=== PATIENT | female | born 1960 | race Caucasian/White ===

== ENCOUNTER 2019-10-14 10:41 | Outpatient (CLI) | payer BC, SELFPAY ==
--- NOTE | ~2019-10-14 | MM_ITS ---
EXAMINATION: MM screening [facility] BI w mega HISTORY: Screening mammogram TECHNIQUE: Craniocaudal and mediolateral oblique 3-D tomosynthesis images were obtained and synthetic 2-D images were generated. CAD analysis was submitted and interpreted. COMPARISON: Comparison to multiple prior studies sequentially, with oldest reviewed study dated 09/12. BREAST PARENCHYMAL COMPOSITION: There are scattered areas of fibroglandular density. FINDINGS: There is no evidence of suspicious mass, calcification, or architectural distortion to sugg est malignancy in either breast. There has been no suspicious interval change. IMPRESSION: 1. No mammographic evidence of malignancy. 2. Recommend routine screening mammography in one year. BI-RADS Category 1: Negative Reviewed, dictated and finalized at location A.
== END 2019-10-14 10:42 | disposition home or self-care (01) ==
PROVIDERS: PCP Internal Medicine; Visit Provider Internal Medicine
DX: Z12.31 Encounter for screening mammogram for malignant neoplasm of breast (principal)
CPT/HCPCS: 77063; 77067

== ENCOUNTER 2019-12-09 10:59 | Emergency (ER) | payer BC, SELFPAY ==
--- NOTE | ~2019-12-09 | CT_ITS ---
EXAMINATION: CT thoracic lumbar wo con DATE: 12/09/2019 12:31 INDICATION: Low back pain. Thoracic back pain. Fall. Lower extremity weakness and numbness. TECHNIQUE: Computed tomography (CT) of the thoracic and lumbar spine was performed without intravenou s contrast. Automated exposure control and iterative reconstruction technique were employed. The dose -length product was 2131.96 mGy-cm. COMPARISON: None FINDINGS: CT THORACIC SPINE: There is a 3.3 cm nodule in left thyroid lobe. There is 6 degrees dextrocurvature of thoracic spine. There is mild chronic anterior wedging of T6 and T7 vertebral bodies. There are Sc hmorl's nodes at most levels. There is mildly decreased disc height from T2-T3 through T8-T9. At T8-T 9, the disc is bulging and mild central canal stenosis. At T10-T11, there is a large calcified centra l extrusion with severe central canal stenosis. There is multilevel facet joint osteoarthritis, sever e on the right at T4-T5. There is multilevel mild neural foraminal stenosis bilaterally. There is mod erate neural foraminal stenosis on the left at T10-T11. CT LUMBAR SPINE: There is 4 degrees levocurvature of lumbar spine. There is 3 mm anterolisthesis of L 4 on L5. There are changes of anterior and posterior fusion procedures at L1-L2 with interbody device and pedicle screws. Vertebral body heights are normal. There is moderately decreased disc height at L2-L3, L3-L4, and L5-S1 and mildly decreased disc height at L4-L5. The following disc levels are spec ifically discussed: L1-L2: There is mild right facet joint hypertrophy. There is mild bilateral neural foraminal stenosis . There is no central canal stenosis. L2-L3: The disc is bulging. There is mild bilateral facet joint osteoarthritis. There is moderate eloisa ateral neural foraminal stenosis. There is moderate central canal stenosis. L3-L4: The disc is bulging. There is mild bilateral facet joint osteoarthritis. There is moderate and mild left neural foraminal stenosis. There is moderate central canal stenosis. L4-L5: The disc is bulging. There is severe bilateral facet joint osteoarthritis. There is moderate b ilateral neural foraminal stenosis. There is mild central canal stenosis. L5-S1: The disc is bulging. There is moderate right and severe left facet joint osteoarthritis. There is moderate right and mild left neural foraminal stenosis. There is mild central canal stenosis. IMPRESSION: 1. Severe thoracic and lumbar spondylosis. 2. Anterior and posterior fusion procedures at L1-L2. Reviewed, dictated and finalized at location B.
--- NOTE | ~2019-12-09 | XR_ITS ---
EXAMINATION: XR ankle LT min 3V DATE: 12/09/2019 12:30 INDICATION: Left ankle pain. Fall. TECHNIQUE: 3 views of left ankle were obtained. COMPARISON: None. FINDINGS: Bone alignment is normal. There is a fragment of heterotopic ossification distal to medial malleolus. There is mild midfoot osteoarthritis. There are enthesophytes at the posterior and plantar aspects of calcaneal tuberosity. There is ankle soft tissue swelling. IMPRESSION: 1. Fragment of heterotopic ossification distal to medial malleolus, which may be an acute avulsion fr acture or finding from old injury. Reviewed, dictated and finalized at location B. IMPRESSION: 1. Fragment of heterotopic ossification distal to medial malleolus, which may b e an acute avulsion fracture or finding from old injury.
[2019-12-09 11:20] VITALS: BP 139/69; PULSE 86; RESP 12; TEMP 36.2; O2SAT 92
--- NOTE | 2019-12-09 11:43 | ED.WEAKNESS ---
HPI - Weakness General Chief complaint: Weakness Stated complaint: loss of bladder control/ fell and hurt danae Time Seen by Provider: 12/09/19 11:43 Source: patient Mode of arrival: wheelchair Limitations: no limitations History of Present Illness HPI Narrative: 59-year-old woman with a history of spinal trauma 2 years ago that resulted in some bilateral lower extremity paresis even after surgery comes in today complaining of 3 weeks of increasing weakness in her lower extremities, incontinence for the last week, had a fall last night. She states that she fell on her backside. she states that prior to 3 weeks ago she was able to ambulate independently, using her walker around the house for safety and using arm crutches when she was out of the house. At that juncture she was able to hold her grandchild and drive. 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 She denies fever, nausea, vomiting, cough or cold symptoms, abdominal pain, diarrhea. She states that she was treated with medication for dysuria a week ago and her dysuria persists. She states she has been taking Cipro for the last few days. Patient and her states that she had an MRI a week ago and she discussed it with someone in her doctor's office, Dr. Michael Peguero: [phone] Complaint: focal weakness Onset (ago): week(s) (3) Duration: constant Location: LLE and RLE Migration: none Severity: severe Relieving factors: none Exacerbating factors: none Context: trauma/injury Associated symptoms: dysuria Related Data Home Medications Medication Instructions Recorded Confirmed amitriptyline 75 mg PO DAILY 12/09/19 12/09/19 cyclobenzaprine 5 mg PO QAM 12/09/19 12/09/19 cyclobenzaprine 10 mg PO HS 12/09/19 12/09/19 escitalopram oxalate 10 mg PO DAILY 12/09/19 12/09/19 gabapentin 300 mg PO TID 12/09/19 12/09/19 glimepiride 40 mg PO BID 12/09/19 12/09/19 lisinopril 5 mg PO DAILY 12/09/19 12/09/19 lorazepam 0.5 mg PO TID PRN 12/09/19 12/09/19 lovastatin 20 mg PO DAILY 12/09/19 12/09/19 methylprednisolone See Rx Instructions .ROUTE .COMPLEX 12/09/19 pioglitazone 30 mg PO DAILY 12/09/19 12/09/19 tramadol 50 mg PO Q6-8H PRN 12/09/19 12/09/19 Allergies Allergy/AdvReac Type Severity Reaction Status Date / Time Sulfa (Sulfonamide Allergy Mild Rash Verified 12/09/19 13:44 Antibiotics) cefuroxime [From Ceftin] Allergy Diarrhea Verified 12/09/19 12:19 Review of Systems Constitutional: Constitutional: Denies chills, Denies fatigue, Denies fever(s) and Reports weakness Eyes: Eyes: Denies change in vision and Denies photophobia ENT: Denies dysphagia, Denies nasal congestion and Denies sore throat Cardiovascular: Cardiovascular: Denies chest pain and Denies radiating jaw, neck or arm pain Respiratory: Respiratory: Denies cough, Denies dyspnea and Denies wheezing Gastrointestinal: Gastrointestinal: Denies abdominal pain, Denies diarrhea, Denies nausea and Denies vomiting Genitourinary: Genitourinary: Reports dysuria and Reports urinary incontinence Musculoskeletal: Musculoskeletal: Denies back pain, Denies arthralgias and Denies joint swelling Integumentary/Breasts: Skin/Breast: Denies pruritus, Denies erythema and Denies rash Neurologic: Denies vertigo, Denies dizziness and Denies syncope Endocrine: Endocrine: Denies polydipsia and Denies polyuria Hematologic/Lymphatic: Hematologic/Lymphatic: Denies easy bleeding and Denies easy bruising Allergic/Immunologic: Allergic/Immunologic: Denies lip swelling, Denies throat swelling and Denies tongue swelling PMFSH Past Medical History Medical History Anxiety Dysthymic disorder HTN (hypertension) Hyperlipidemia Obesity Paraplegia T2DM (type 2 diabetes mellitus) Surgical History Surgical History (Reviewed 12/09/19 @ 11:54 by Philipp
[2019-12-09 12:00] LABS: Add Urine Microscopic? YES; Appearance Urine Turbid (Clear); Bilirubin Urine Negative (Negative); Blood Urine 3+ (Negative); Color Urine Orange (Yellow); Glucose Urine UA Trace (Negative); Ketones Urine Negative (Negative); Leukocyte Esterase Ur 2+ (Negative); Nitrate Urine Positive (Negative); Protein Urine 2+ (Negative); Specific Grav Ur >= 1.030 (1.010-1.020); pH Urine 5.5 (5.0-8.0)
[2019-12-09 12:05] LABS: RBC Urine None seen /hpf (0-2); Squamous Epithelial Cell Urine Few /hpf (Few); WBC Urine >75 /hpf (0-3)
[2019-12-09 12:06] LABS: Bacteria Urine 2+ /hpf
[2019-12-09 13:03] LABS: Basophils Absolute Auto 0.04 K/mm3 (0.00-0.10); Basophils Percent Auto 0.4 % (0.0-1.0); Eosinophils Absolute Auto 0.16 K/mm3 (0.02-0.50); Eosinophils Percent Auto 1.5 % (1.0-6.0); Hematocrit 43.5 % (35.0-49.0); Hemoglobin 13.8 g/dL (12.0-15.0); Immature Granulocyte Absolute 0.03 K/mm3 (0.00-0.00); Immature Granulocyte Percent A 0.3 % (0.0-0.0); Lymphocytes Absolute Auto 1.69 K/mm3 (1.10-4.50); Lymphocytes Percent Auto 16.3 % (18.0-42.0); Mean Corpuscular HGB Conc 31.7 g/dL (32.0-36.0); Mean Corpuscular Hemoglobin 29.7 pg (27.0-31.0); Mean Corpuscular Volume 93.8 fL (78.0-102.0); Monocytes Absolute Auto 0.68 K/mm3 (0.10-0.90); Monocytes Percent Auto 6.5 % (2.0-11.0); Neutrophils Absolute Auto 7.8 K/mm3 (1.7-7.2); Platelet Count Result 202 K/mm3 (150-420); Red Blood Count 4.64 M/mm3 (4.20-5.40); White Blood Count 10.4 K/mm3 (4.8-10.8)
[2019-12-09 13:16] LABS: INR 1.2; Partial Thromboplastin Time 28.8 SEC (22.3-31.6); Prothrombin Time 12.3 Seconds (9.64-11.0)
[2019-12-09 13:19] LABS: Alanine Aminotransferase 26 U/L (14-59); Albumin Level 3.4 g/dL (3.4-5.0); Alkaline Phosphatase 68 U/L (46-116); Anion Gap 6 mmol/L (8-16); Aspartate Amino Transferase 24 U/L (15-37); Bilirubin,Total 0.4 mg/dL (0.00-1.00); Blood Urea Nitrogen 18 mg/dL (7-18); CRP 2.6 mg/dL (0.0-0.9); Calcium 9.2 mg/dL (8.5-10.1); Carbon Dioxide 31 mmol/L (21-32); Chloride 101 mmol/L (98-108); Estimated CRCL calculation 65 ml/min; Estimated Glomerular Filt Rate 46; Glucose 148 mg/dL (70-99); Osmolality Calculated 290 mOsm/kg (285-295); Potassium 4.4 mmol/L (3.5-5.1); Sodium 138 mmol/L (136-145); Total Protein 7.7 g/dL (6.4-8.2)
[2019-12-09 13:28] LABS: Lactic Acid Reflex 1.9 mmol/L (0.4-2.0)
--- NOTE | 2019-12-09 14:18 | PC.NURSE ---
Pts back surgeon Dr. Rodriguez contacted. DR. rodriguez would like pt to be transfered to [facility] for MRI.
[2019-12-09 14:19] VITALS: BP 116/59; PULSE 89; RESP 14; O2SAT 98
--- NOTE | 2019-12-09 16:01 | PC.NURSE ---
[facility] contacted about callback. states they are waiting for neurosurgery to call us back. edp aware.
--- NOTE | 2019-12-09 17:05 | PC.NURSE ---
FOOD TRAY ORDERED
[2019-12-09 17:08] VITALS: BP 101/51; PULSE 72; RESP 18; O2SAT 98
--- NOTE | 2019-12-09 17:08 | PC.NURSE ---
[facility]RE[facility] TO AWAIT [facility] TO CALL BACK
--- NOTE | 2019-12-09 17:56 | PC.NURSE ---
[facility] contacted for updated time frame for neurosurgery to call back, states they are still waiting.
[2019-12-09 18:09] VITALS: BP 138/62; PULSE 82; RESP 20; O2SAT 99
--- NOTE | 2019-12-09 18:40 | PC.NURSE ---
no change in pt status, pt laid back in bed. no complaints at this time.
--- NOTE | 2019-12-09 19:00 | PC.NURSE ---
Dr. Escalante speaking with Dr. Teresa with [facility].
[2019-12-09 20:40] VITALS: BP 139/78; PULSE 87; RESP 18; O2SAT 92
--- NOTE | 2019-12-13 16:51 | PC.NURSE ---
LATE ENTRY This note is being entered to document information to the patient's record. The following information was omitted on [12/09/19], by [Lauren BOSTON RN]. LEVAQUIN INFUSION COMPLETED AT 1446, 150ML INFUSED.
== END 2019-12-09 20:45 | disposition home or self-care (01) ==
PROVIDERS: Emergency Provider Emergency Medicine; PCP Internal Medicine
DX: R53.1 Weakness (principal); N39.0 Urinary tract infection, site not specified; G62.9 Polyneuropathy, unspecified; I10 Essential (primary) hypertension; E78.5 Hyperlipidemia, unspecified; E11.9 Type 2 diabetes mellitus without complications
CPT/HCPCS: 36415; 72128; 72131; 73610; 80053; 81001; 83605; 85025; 85610; 85730; 86140; 87040; 87077; 87086; 87088; 87186; 96365; 99284; J1956

== ENCOUNTER 2020-10-28 10:56 | Outpatient (CLI) | payer BC, SELFPAY ==
--- NOTE | ~2020-10-28 | MM_ITS ---
EXAMINATION: MM screening [facility] BI w mega HISTORY: Screening mammogram TECHNIQUE: Craniocaudal and mediolateral oblique 3-D tomosynthesis images were obtained and synthetic 2-D images were generated. CAD analysis was submitted and interpreted. COMPARISON: 10/14/2019, 09/12/2018, 09/06/2017 BREAST PARENCHYMAL COMPOSITION: The breasts are almost entirely fatty. FINDINGS: There is no evidence of suspicious mass, calcification, or architectural distortion to sugg est malignancy in either breast. There has been no suspicious interval change. IMPRESSION: 1. No mammographic evidence of malignancy. 2. Recommend routine screening mammography in one year. BI-RADS Category 1: Negative Reviewed, dictated and finalized at location A.
== END 2020-10-28 10:57 | disposition home or self-care (01) ==
LOC: CHSIMG 10:58
PROVIDERS: PCP Internal Medicine; Visit Provider Internal Medicine
DX: Z12.31 Encounter for screening mammogram for malignant neoplasm of breast (principal)
CPT/HCPCS: 77063; 77067

== ENCOUNTER 2021-04-19 10:48 | Outpatient (CLI) | payer MEDICARE, OTHER, SELFPAY ==
--- NOTE | ~2021-04-19 | XR_ITS ---
XR ankle LT 2V DATE: 04/19/2021 11:16 INDICATION: Left ankle injury 2 weeks ago. Lateral pain. TECHNIQUE: 2 views COMPARISON: 12/09/2019 left ankle FINDINGS: There is very prominent plantar as well as prominent posterior calcaneal enthesopathy. No a ssociated erosive change or periostitis is noted. There is diffuse osteopenia. No fracture or dislocation of the ankle or disruption of the ankle mortise. No periosteal reaction or bone destruction. IMPRESSION: Osteopenia Prominent plantar and posterior calcaneal enthesopathy Reviewed, dictated and finalized at location A. CTURAL DESIGNER
== END 2021-04-19 10:49 | disposition home or self-care (01) ==
LOC: CHSIMG 10:57
PROVIDERS: PCP Internal Medicine; Visit Provider Internal Medicine
DX: S99.912A Unspecified injury of left ankle, initial encounter (principal)
CPT/HCPCS: 73600

== ENCOUNTER 2021-11-02 10:03 | Outpatient (CLI) | payer MEDICARE, OTHER, SELFPAY ==
--- NOTE | ~2021-11-02 | MM_ITS ---
EXAMINATION: MM screening [facility] BI w mega HISTORY: Screening TECHNIQUE: Craniocaudal and mediolateral oblique 3-D tomosynthesis images were obtained and synthetic 2-D images were generated. CAD analysis was submitted and interpreted. COMPARISON: Comparison to multiple prior studies sequentially, with oldest reviewed study dated 07/25. BREAST PARENCHYMAL COMPOSITION: There are scattered areas of fibroglandular density. FINDINGS: There is no evidence of suspicious mass, calcification, or architectural distortion to sugg est malignancy in either breast. There has been no suspicious interval change. IMPRESSION: 1. No mammographic evidence of malignancy. 2. Recommend routine screening mammography in one year. BI-RADS Category 1: Negative Reviewed, dictated and finalized at location L.
== END 2021-11-02 10:04 | disposition home or self-care (01) ==
LOC: CHSIMG 10:05
PROVIDERS: PCP Internal Medicine; Visit Provider Internal Medicine
DX: Z12.31 Encounter for screening mammogram for malignant neoplasm of breast (principal)
CPT/HCPCS: 77063; 77067

== ENCOUNTER 2022-01-10 14:17 | Outpatient (CLI) | payer MEDICARE, OTHER, SELFPAY ==
--- NOTE | ~2022-01-10 | XR_ITS ---
EXAMINATION: XR chest 2V DATE: 01/10/2022 14:41 INDICATION: Cough and wheezing TECHNIQUE: PA and lateral views of the chest are obtained. COMPARISON: 09/26/2010 FINDINGS: The lungs are free of acute opacities. No pleural effusion or pneumothorax. The cardiomedia stinal silhouette is normal. There is moderate thoracic spondylosis. Changes of anterior and posterio r thoracolumbar fusion are noted. IMPRESSION: 1. No acute cardiopulmonary abnormality. Reviewed, dictated and finalized at location A.
[2022-01-10 14:41] LABS: Basophils Absolute Auto 0.08 K/mm3 (0.00-0.10); Basophils Percent Auto 0.8 % (0.0-1.0); Eosinophils Absolute Auto 0.21 K/mm3 (0.02-0.50); Eosinophils Percent Auto 2.1 % (1.0-6.0); Immature Granulocyte Absolute 0.04 K/mm3 (0.00-0.00); Immature Granulocyte Percent A 0.4 % (0.0-0.0); Mean Corpuscular HGB Conc 31.9 g/dL (32.0-36.0); Mean Corpuscular Hemoglobin 29.2 pg (27.0-31.0); Mean Corpuscular Volume 91.4 fL (78.0-102.0); Mean Platelet Volume 10.9 fl (9.2-11.8); Monocytes Absolute Auto 1.13 K/mm3 (0.10-0.90); Monocytes Percent Auto 11.3 % (2.0-11.0); Neutrophils Absolute Auto 6.2 K/mm3 (1.7-7.2); Neutrophils Percent Auto 62.4 % (50.0-70.0); Platelet Count Result 214 K/mm3 (150-420); Red Blood Count 5.14 M/mm3 (4.20-5.40); Red Cell Distribution Width 13.1 % (11.6-14.4)
[2022-01-10 14:53] LABS: Alanine Aminotransferase 37 U/L (14-59); Albumin Level 3.6 g/dL (3.4-5.0); Alkaline Phosphatase 104 U/L (46-116); Anion Gap 5 mmol/L (8-16); Aspartate Amino Transferase 26 U/L (15-37); Bilirubin,Total 0.4 mg/dL (0.00-1.00); Blood Urea Nitrogen 8 mg/dL (7-18); Calcium 9.1 mg/dL (8.5-10.1); Carbon Dioxide 32 mmol/L (21-32); Chloride 101 mmol/L (98-108); Estimated Glomerular Filt Rate > 60; Glucose 145 mg/dL (70-99); Osmolality Calculated 287 mOsm/kg (285-295); Potassium 3.8 mmol/L (3.5-5.1); Sodium 138 mmol/L (136-145); Total Protein 7.8 g/dL (6.4-8.2)
== END 2022-01-10 14:18 | disposition home or self-care (01) ==
LOC: CHSLAB 14:21
PROVIDERS: PCP Internal Medicine; Visit Provider Internal Medicine
DX: R05.9 Cough, unspecified (principal); R06.2 Wheezing
CPT/HCPCS: 36415; 71046; 80053; 85025

== ENCOUNTER 2022-06-24 16:27 | Emergency (ER) | payer MEDICARE, OTHER, SELFPAY ==
[2022-06-24 16:27] VITALS: BP 149/88; PULSE 106; RESP 18; O2SAT 95
[2022-06-24 16:30] VITALS: BP 149/88; PULSE 111; RESP 20; TEMP 36.1; O2SAT 99
--- NOTE | 2022-06-24 16:36 | ECG_ITS ---
Measurements Intervals [place] Rate: 102 P: 60 CO: 155 QRS: -3 QRSD: 102 T: 67 QT: 335 QTc: 436 Interpretive Statements SINUS TACHYCARDIA LEFT VENTRICULAR HYPERTROPHY WITH ST-T CHANGE BORDERLINE R WAVE PROGRESSION, ANTERIOR LEADS BASELINE ARTIFACT- II, III, AVR, AVL, AVF BORDERLINE ECG NO PREVIOUS ECG AVAILABLE FOR COMPARISON Electronically Signed On 06-24-2022 17:17:07 SENIOR DESIGN ENGINEERING SPECIALIST by Jameel Durant D.O.
[2022-06-24 16:40] LABS: Glucose Point of Care 180 mg/dl (65-105)
--- NOTE | 2022-06-24 16:40 | ED.NAVMDI ---
HPI - Nausea/Vomiting/Diarrhea General Chief complaint: Nausea/Vomiting/Diarrhea Stated complaint: vomting diarrhea Time Seen by Provider: 06/24/22 16:30 Source: patient Mode of arrival: wheelchair Limitations: no limitations History of Present Illness HPI Narrative: this is a 62-year-old female with a history of diabetes recently started on Ozempic by her primary care physician and for last 2 days has been having nausea vomiting and episodes of diarrhea watery with no fever chills no chest pain no shortness of breath no abdominal pain. MD elicited complaint: nausea, vomiting and diarrhea Onset (ago): day(s) Description of vomiting: watery Associated nausea: Yes Associated abdominal pain: No Severity: mild Related Data Home Medications Medication Instructions Recorded Confirmed amitriptyline 75 mg tablet 75 mg PO DAILY 12/09/19 06/24/22 cyclobenzaprine 5 mg tablet 10 mg PO HS 12/09/19 06/24/22 escitalopram oxalate 10 mg tablet 10 mg PO DAILY 12/09/19 06/24/22 gabapentin 300 mg capsule 300 mg PO TID 12/09/19 06/24/22 lisinopril 5 mg tablet 5 mg PO DAILY 12/09/19 06/24/22 lorazepam 0.5 mg tablet 0.5 mg PO TID PRN Anxiety 12/09/19 06/24/22 lovastatin 20 mg tablet 20 mg PO DAILY 12/09/19 06/24/22 tramadol 50 mg tablet 50 mg PO Q6-8H PRN Pain 12/09/19 06/24/22 Allergies Allergy/AdvReac Type Severity Reaction Status Date / Time Sulfa (Sulfonamide Allergy Mild Rash Verified 12/09/19 13:44 Antibiotics) cefuroxime [From Ceftin] Allergy Diarrhea Verified 12/09/19 12:19 Review of Systems Review of Systems: All systems reviewed & are unremarkable except as noted in HPI and below PMFSH Past Medical History Medical History (Updated 06/24/22 @ 17:40 by Trenton Merino MD) Anxiety Dysthymic disorder HTN (hypertension) Hyperlipidemia Obesity Paraplegia T2DM (type 2 diabetes mellitus) Surgical History Surgical History H/O Spinal surgery History of right oophorectomy Social History Social History Smoking status: Never smoker Substance use: never Living arrangements: with family Exam Const: General: healthy appearing and no acute distress Nutritional Appearance: well nourished Orientation/consciousness: patient oriented x3 Limitations: no limitations HENMT: Head: normal to inspection Face/Nose/Sinus: Normal external nose present Face and sinus: normal facial exam Mouth: Yes Normal oral and palatal mucosa present Eyes: Conjunctivae: conjunctivae normal Pupils: Equal, round and reactive pupils present EOM: EOMs intact bilaterally Direct Ophthalmoscopy: no photophobia Neck: Neck: normal visual inspection Chest: Chest palpation & inspection: normal inspection of the chest Resp: Effort & Inspection: normal respiratory effort Auscultation: clear to auscultation bilaterally Cardio: Rate: regular rate Rhythm: regular rhythm GI: GI Palp: Yes Soft to palpation : General: Yes bladder normal to palpation Back/Spine/Pelvis: Back: no CVA tenderness Skin: General skin exam: normal color Rashes: no rashes Wounds: no wounds Neuro: General: patient oriented x3 and moves all extremities Cranial nerves: Yes Nystagmus not present Speech: normal speech Extrem: General: normal to inspection Psych: Mental Status: mental status grossly normal Affect: normal affect Attitude: cooperative Course Course Emergency Course: Patient's vitals are stable blood pressure 149/88 heart rate of 106, EKG obtained and reviewed, patient started on IV fluids along with IV Zofran EKG and labs reviewed with patient. MDM - Nausea/Vomiting/Diarrhea Lab Data Labs: Lab Results 06/24/22 Range/Units 16:36 POC Capillary Glucose Pending Critical Care Time Critical Care Time Critical Care Time: No Discharge Plan Discharge Clinical Impression: Nausea vomiting and diarrhea Neil
[2022-06-24] MEDS: ONDANSETRON INJ 4 MG/2 ML VIAL IV PUSH (16:49)
[2022-06-24] MEDS: SODIUM CHLORIDE 0.9% IV 1,000 ML 999 ML IV CONT (16:49)
[2022-06-24 17:02] LABS: Basophils Absolute Auto 0.04 K/mm3 (0.00-0.10); Basophils Percent Auto 0.5 % (0.0-1.0); Eosinophils Absolute Auto 0.19 K/mm3 (0.02-0.50); Eosinophils Percent Auto 2.3 % (1.0-6.0); Hemoglobin 15.9 g/dL (12.0-15.0); Immature Granulocyte Absolute 0.02 K/mm3 (0.00-0.00); Immature Granulocyte Percent A 0.2 % (0.0-0.0); Lymphocytes Absolute Auto 2.01 K/mm3 (1.10-4.50); Lymphocytes Percent Auto 24.1 % (18.0-42.0); Mean Corpuscular HGB Conc 32.4 g/dL (32.0-36.0); Mean Corpuscular Hemoglobin 28.9 pg (27.0-31.0); Mean Corpuscular Volume 89.1 fL (78.0-102.0); Mean Platelet Volume 10.5 fl (9.2-11.8); Monocytes Absolute Auto 0.63 K/mm3 (0.10-0.90); Monocytes Percent Auto 7.6 % (2.0-11.0); Neutrophils Absolute Auto 5.4 K/mm3 (1.7-7.2); Neutrophils Percent Auto 65.3 % (50.0-70.0); Platelet Count Result 270 K/mm3 (150-420); Red Cell Distribution Width 12.9 % (11.6-14.4); White Blood Count 8.3 K/mm3 (4.8-10.8)
[2022-06-24 17:09] VITALS: BP 132/71; PULSE 95; RESP 20; O2SAT 97
[2022-06-24 17:17] LABS: Alanine Aminotransferase 36 U/L (14-59); Albumin Level 3.7 g/dL (3.4-5.0); Alkaline Phosphatase 93 U/L (46-116); Anion Gap 12 mmol/L (8-16); Aspartate Amino Transferase 27 U/L (15-37); Bilirubin,Total 0.5 mg/dL (0.00-1.00); Blood Urea Nitrogen 15 mg/dL (7-18); Calcium 6.8 mg/dL (8.5-10.1); Carbon Dioxide 26 mmol/L (21-32); Chloride 100 mmol/L (98-108); Estimated CRCL calculation 68 ml/min; Estimated Glomerular Filt Rate 53; Glucose 183 mg/dL (70-99); Lipase 40 U/L (16-77); Osmolality Calculated 291 mOsm/kg (285-295); Potassium 3.5 mmol/L (3.5-5.1); Sodium 138 mmol/L (136-145); Total Protein 8.4 g/dL (6.4-8.2)
[2022-06-24 17:22] LABS: Lactic Acid Reflex 1.9 mmol/L (0.4-2.0)
[2022-06-24 17:44] VITALS: BP 133/78; PULSE 97; RESP 20; O2SAT 98
== END 2022-06-24 17:50 | disposition home or self-care (01) ==
PROVIDERS: Emergency Provider Emergency Medicine; PCP Internal Medicine
DX: R11.2 Nausea with vomiting, unspecified (principal); R19.7 Diarrhea, unspecified; I10 Essential (primary) hypertension; E78.5 Hyperlipidemia, unspecified; E11.9 Type 2 diabetes mellitus without complications
CPT/HCPCS: 36415; 80053; 82948; 83605; 83690; 85025; 93005; 96361; 96374; 99283; 99284; J2405; J7030

== ENCOUNTER 2022-11-09 12:48 | Outpatient (CLI) | payer MEDICARE, OTHER, SELFPAY ==
--- NOTE | ~2022-11-09 | MM_ITS ---
EXAMINATION: MM screening [facility] BI w mega HISTORY: Screening mammogram TECHNIQUE: Craniocaudal and mediolateral oblique 3-D tomosynthesis images were obtained and synthetic 2-D images were generated. CAD analysis was submitted and interpreted. COMPARISON: 11/02/2021, 10/28/2020, 10/14/2019 BREAST PARENCHYMAL COMPOSITION: The breasts are almost entirely fatty. FINDINGS: No suspicious mass, calcification, or architectural distortion are identified in either marly ast to suggest malignancy. There has been no suspicious interval change. IMPRESSION: 1. No mammographic evidence of malignancy. 2. Recommend routine screening mammography in one year. BI-RADS Category 1: Negative Reviewed, dictated and finalized at location A.
== END 2022-11-09 12:49 | disposition home or self-care (01) ==
LOC: CHSIMG 12:50
PROVIDERS: PCP Internal Medicine; Visit Provider Internal Medicine
DX: Z12.31 Encounter for screening mammogram for malignant neoplasm of breast (principal)
CPT/HCPCS: 77063; 77067

== ENCOUNTER 2023-04-23 14:50 | Outpatient (CLI) | payer MEDICARE, OTHER, SELFPAY ==
--- NOTE | ~2023-04-23 | XR_ITS ---
EXAMINATION: XR chest 2V DATE: 04/23/2023 15:10 INDICATION: Cough and wheezing TECHNIQUE: PA and lateral views of the chest were obtained. COMPARISON: Chest radiograph dated 01/10/2022 FINDINGS: The lungs remain clear with no focal airspace opacities, pulmonary edema, pleural effusion or pneumot horax. The cardiomediastinal silhouette is normal. Mild to moderate thoracic spondylosis. There is a combined multilevel instrumented anterior and posterior spinal fusion extending from the lower thorac ic spine into the upper lumbar spine and beyond the inferior margin of the field of imaging. IMPRESSION: 1. No acute cardiopulmonary disease. Reviewed, dictated and finalized at location A. 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
== END 2023-04-23 14:51 | disposition home or self-care (01) ==
LOC: CHSIMG 14:53
PROVIDERS: PCP Internal Medicine; Visit Provider Internal Medicine
DX: R05.9 Cough, unspecified (principal)
CPT/HCPCS: 71046

== ENCOUNTER 2023-11-12 11:51 | Outpatient (CLI) | payer MEDICARE, OTHER, SELFPAY ==
--- NOTE | ~2023-11-12 | MM_ITS ---
EXAMINATION: MM screening [facility] BI w mega HISTORY: Screening TECHNIQUE: Craniocaudal and mediolateral oblique 3-D tomosynthesis images were obtained and synthetic 2-D images were generated. CAD analysis was submitted and interpreted. COMPARISON: Comparison to multiple prior studies sequentially, with oldest reviewed study dated 09/06. BREAST PARENCHYMAL COMPOSITION: Not Dense. The breasts are almost entirely fatty. FINDINGS: There is no evidence of suspicious mass, calcification, or architectural distortion to sugg est malignancy in either breast. There has been no suspicious interval change. IMPRESSION: 1. No mammographic evidence of malignancy. 2. Recommend routine screening mammography in one year. BI-RADS Category 1: Negative Reviewed, dictated and finalized at location B.
== END 2023-11-12 11:52 | disposition home or self-care (01) ==
LOC: CHSIMG 11:54
PROVIDERS: PCP Internal Medicine; Visit Provider Internal Medicine
DX: Z12.31 Encounter for screening mammogram for malignant neoplasm of breast (principal)
CPT/HCPCS: 77063; 77067

== ENCOUNTER 2024-07-09 13:48 | Outpatient (CLI) | payer MEDICARE, OTHER, SELFPAY ==
--- NOTE | ~2024-07-09 | XR_ITS ---
EXAMINATION: XR chest 2V 07/09/2024 14:12 INDICATION: Cough with wheezing PROCEDURE: Two-view chest COMPARISON: 04/23/2023 FINDINGS: The lungs are clear. The cardiomediastinal silhouette is within normal limits. There are no pleural effusions. There is no pneumothorax suspected. Spinal fusion hardware partially visualiz ed. IMPRESSION: 1: NO ACUTE CARDIOPULMONARY DISEASE. Reviewed, dictated and finalized at location A.
[2024-07-09 14:07] LABS: Basophils Absolute Auto 0.04 K/mm3 (0.00-0.10); Basophils Percent Auto 0.4 % (0.0-1.0); Eosinophils Absolute Auto 0.39 K/mm3 (0.02-0.50); Eosinophils Percent Auto 4.3 % (1.0-6.0); Hematocrit 44.1 % (35.0-49.0); Immature Granulocyte Absolute 0.04 K/mm3 (0.00-0.00); Immature Granulocyte Percent A 0.4 % (0.0-0.0); Lymphocytes Absolute Auto 2.45 K/mm3 (1.10-4.50); Lymphocytes Percent Auto 27.1 % (18.0-42.0); Mean Corpuscular HGB Conc 31.7 g/dL (32-36); Mean Corpuscular Hemoglobin 28.5 pg (27.0-31.0); Mean Corpuscular Volume 89.6 fL (78.0-102.0); Mean Platelet Volume 10.5 fl (9.2-11.8); Monocytes Absolute Auto 0.66 K/mm3 (0.10-0.90); Monocytes Percent Auto 7.3 % (2.0-11.0); Neutrophils Absolute Auto 5.46 K/mm3 (1.70-7.20); Neutrophils Percent Auto 60.5 % (50.0-70.0); Platelet Count Result 203 K/mm3 (150-420); Red Blood Count 4.92 M/mm3 (4.20-5.40); Red Cell Distribution Width 13.5 % (11.6-14.4)
[2024-07-09 14:21] LABS: Alanine Aminotransferase 33 U/L (14-59); Albumin Level 3.4 g/dL (3.4-5.0); Alkaline Phosphatase 115 U/L (46-116); Anion Gap 7 mmol/L (4-12); Aspartate Amino Transferase 23 U/L (15-37); Bilirubin,Total 0.4 mg/dL (0.00-1.00); Blood Urea Nitrogen 15 mg/dL (7-18); Calcium 9.4 mg/dL (8.5-10.1); Carbon Dioxide 29 mmol/L (21-32); Chloride 102 mmol/L (98-108); Estimated Glomerular Filt Rate 59; Glucose 154 mg/dL (70-99); Osmolality Calculated 289 mOsm/kg (285-295); Potassium 3.9 mmol/L (3.5-5.1); Sodium 138 mmol/L (136-145); Total Protein 7.8 g/dL (6.4-8.2)
[2024-07-09 14:38] LABS: Strep Group A RT-PCR NOT DETECTED (Negative)
[2024-07-09 14:44] LABS: Influenza A QL RT-PCR Negative (Negative); Influenza B QL RT-PCR Negative (Negative); RSV RNA, RT-PCR Negative (Negative); SARS-CoV-2 RNA PCR Negative (Negative)
--- OUTSIDE RECORDS SUMMARY | 2024-07-09 14:56 | XMS_ITS | Patient Health Record ---
Author Organization [facility] Address [address] [place], [place] [address] Care Team Providers Care Rate Clerk Passenger Name Role Phone Trenton Edgar Primary Care Provider Reason For Referral No Information Social History Sex Assigned At : Social History Observation Description Sex Assigned At Female Problems Problem Type SNOMED Code ICD Code Onset Dates Problem Status W/U Status Risk Notes Problem 943140385 Tinea unguium (B35.1) Active confirmed Problem 92595005792887 Morbid (severe) obesity due to excess calories (E66.01) Active confirmed Problem 30413889 Flat foot [pes planus] (acquired), right foot (M21.41) Active confirmed Problem [id number] Flat foot [pes planus] (acquired), left foot (M21.42) Active confirmed Problem 759929425016699 Type 2 diabetes mellitus with diabetic neuropathy, unspecified whether senior care insulin use (E11.40) Active confirmed Problem 91032841 Type 2 diabetes mellitus with diabetic neuropathy, without long-term current use of insulin (E11.40) Active confirmed Problem 307765022 Body mass index [BMI] 40.0-44.9, adult (Z68.41) Active confirmed Plan Of Treatment No Information Insurance Providers Payer Name Payer Address Payer Phone Subscriber Number Group Number Insured Name Patient Relationship to Insured Coverage Start Date Coverage End Date Medicare Part A [facility] [address] [place] [id number] EMILIO LUCIO Self - patient is the insured 1 [employer] [address] [place] [phone] [id number] EMILIO LUCIO Self - patient is the insured
--- OUTSIDE RECORDS SUMMARY | 2024-07-09 14:56 | XMS_ITS | Encounter Summary ---
Author Organization [facility] Healthcare Address [address] [place] [address] Care Team Providers Care Red Cross Worker Name Role Phone Ricky Aburto MD Primary Care Provider + [phone] Catie Elliott PT Unavailable Gayatri Shepard OT Unavailable [phone] Jazmine Mclean RN Unavailable Unavailab Charlene Duke DPT Unavailable Charlene Duke DPT Unavailable Sudhir Rodriguez MD Unavailable Annie Omer MD Unavailable Reason for Visit * Reason Onset Date Comments FYI 08/27/2018 Encounter Details Date Type Department Care Team (Late st Contact Info) Description 08/27/2018 Telephone [facility] [address] [facility] [address] [place], [place] [id number] Trenton Doyle MD [address] 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 Author CCM Chronic Pain Care Plan Chronic Care Management No change(03/03 10:49 AM SIZING MACHINE AND DRIER OPERATOR) No Nelly Flynn, CHICO Note: Problem: Chronic Pain Goals: 1. Minimize further functional decline 2. Maximize quality of life 3. Control pain Strategies: - Activity/exercise program recommendation - Conservative stepwise pain medicine strategy with multi-disciplinary approach - Recommend healthy lifestyle strategies and compensatory methods as needed documented as of this encounter Visit Diagnoses Not on filedocumented in this encounter Care Teams Red Cross Worker Relationship Specialty Start Date End Date Ricky Aburto MD [address] [place] [address] PCP - General 10/09/17 Catie Elliott PT [address] [place] [address] Physical Therapist Physical Therapy 10/25/18 04/23/19 Gayatri Shepard OT [address] [place], [place] [id number] Occupational Therapist Occupational Therapy 12/06/18 07/21/19 Jazmine Mclean RN Registered Nurse 03/03/19 Charlene Duke DPT [address] [address] Physical Therapist Physical Therapy 01/23/20 11/10/20 Charlene Duke DPT [address] [place] [address] Physical Therapist Physical Therapy 08/25/20 11/10/20 Sudhir Rodriguez MD [address] [place], [place] [id number] Surgeon Neurosurgery 12/23/22 Annie Omer MD [address] [place], [place] [id number] Referring Physician Physical Medicine and Rehabilitation 12/23/22 documented as of this encounter
--- OUTSIDE RECORDS SUMMARY | 2024-07-09 14:56 | XMS_ITS | Referral Summary ---
Author Organization [facility] Address [address] [place] [address] Care Team Providers Care Outboard System Operator Name Role Phone Ricky Aburto MD Primary Care Provider + [phone] Jazmine Mclean RN Unavailable Unavailab Sudhir Miller MD Unavailable [phone] Annie Omer MD Unavailable [phone] Allergies Active Allergy Reactions Criticality Noted Date Comments Cefuroxime Diarrhea,Stomach upset Low Sulfa (Sulfonamide Antibiotics) Rash,Redness Medium Medications glimepiride (AMARYL) 4 mg tabletIndicatio ns:type 2 diabetes mellitus Take 1 tablet (4 mg total) by mouth 2 (two) times a day Active amitriptyline (ELAVIL) 75 mg tablet Take 1 tablet (75 mg total) by mouth daily. 8 Active Additional Information Patient taking differently:75 mg oralNightly, Indications: Neuropathic Pain, Reported on 12/27/2022 LORazepam (ATIVAN) 0.5 mg tabletIndicatio ns:anxiety Take 1 tablet (0.5 mg total) by mouth 2 (two) times a day 0 8 Active aspirin 81 mg enteric coated tabletIndicatio ns:prevention of thrombosis Take 1 tablet (81 mg total) by mouth yarn sizer before breakfast PLEASE HOLD FOR 1 WEEK FOLLOWING SURGERY, MAY RESUME 01/01/2020. 0 Active traMADoL (ULTRAM) 50 mg tablet Take 1 tablet (50 mg total) by mouth Active gabapentin (NEURONTIN) 300 mg capsuleIndicati ons:Neuropathic pain TAKE 2 CAPSULES(600 MG) BY MOUTH THREE TIMES DAILY 180 capsule 5 1 Active lisinopriL (PRINIVIL,ZESTR IL) 5 mg tablet Take 1 tablet (5 mg total) by mouth daily 1 Active escitalopram (LEXAPRO) 10 mg tablet 3 Active lovastatin (MEVACOR) 20 mg tablet 3 Active Active Problems Problem Noted Date Diagnosed Date Diabetic peripheral neuropat hy associated with type 2 diabetes mellitus 01/01/2023 Morbid obesity 01/01/2023 Pes planus 01/01/2023 Tinea unguium 01/01/2023 Vitamin D deficiency 12/27/2022 Irritation of both eyes 06/20/2021 Assessment & Plan (06/20/2021 10:41 AM CAMPGROUND CARETAKER): Irregular tear film, low tbut OU and chemosis temporally OS>OD. Recommend restarting Maxitrol BID OU x2 wks. Educated to call if s/s worsen or dni. Keep 09/05/21 strab post op. Strabismus 12/29/2020 Overview (12/29/2020): Added automatically from request for surgery [id number] Exotropia 11/25/2020 Assessment & Plan (09/05/2021 10:07 AM CDT): Ortho in PP s/p sx. X in upgaze only. RTC PRN Assessment & Plan (11/25/2020 12:39 PM CDT): Strabismus large magnitude decompensated exotropia. Strabismus surgery to be scheduled. Psychophysical visual disturbances 11/25/2020 Diplopia 11/25/2020 Assessment & Plan (11/25/2020 12:39 PM CDT): Defective binocularity visual confusion diplopia secondary to the strabismus. Strabismus surgery to be scheduled. Intervertebral disc disorder with myelopathy, thoracic region 12/16/2019 Overview (12/16/2019): Added automatically from request for surgery [id number] Lumbosacral spondylosis without myelopathy 10/15 Other chronic pain 10/15/2018 Chronic bilateral low back pain without sciatica 08/28/2018 Sacroiliitis 08/28/2018 Cauda equina syndrome 02/11/2018 Neurogenic bladder 02/11/2018 Neurogenic bowel 02/11/2018 Impaired mobility and activities of daily living 02/11/2018 Neuropathic pain 02/11/2018 Cervical disc disorder with myelopathy of mid-cervical region 12/24/2017 Spinal stenosis of lumbar re gion with neurogenic claudication 11/07/2017 Overview (11/07/2017): Added automatically from request for surgery [id number] Knee pain 10/04/2012 Cheilitis 03/13/2011 Dermatofibroma 03/13/2011 Skin tag 11/07/2010 Overview (07/27/2017): Description: Acrochordon Hypertension 04/05/2010 Diabetes mellitus 04/05/2010 Hyperlipidemia 04/05/2010 Thyroid nodule Immunizations Immunization Administration Dates Next Due Influenza, Quadrivalent, Jamila l Culture-based MDCK, Preservative Free, Antibiotic Free, Intramuscular 02/06/2020 Influenza, Quadrivalent, Split, Intramuscular Influenza, Quadrivalent, Spl it, Preservative Free, Intramuscular 01/10/2018 Influenza, Trivalent, IM (MDV) 02/09/2012 Influenza, Trivalent, Preservative Free, Intramu scular 01/14/2015 Moderna SARS-CoV-2 Monovalent Vaccination (12+ Y RS) 07/16/2020,06/18/2020 Pneumococcal Conjugate PCV 13 01/14/2015 Tdap 01/15/2016 ZOSTER Recombinant 04/02/2019,11/14/2018 Social History Tobacco Use Types Packs/Day Years Used Date Smoking Tobacco: Former Cigarettes 0.5 22.3 0 12/23/1975 - 04/16/1998 Smokeless Tobacco: Never Tobacco Cessation:Counseling Given: Not Answered Alcohol Use Standard Drinks/Week Comments No 0 (1 standard drink = 0.6 oz pur e alcohol) AUDIT-C Answer Date Recorded Q1: How often do you have a drink containing alc ohol? Never 01/01/2023 Average Number of Drinks Not on file 023 Q3: How often do you have si x or more drinks on one occasion? Never 01/01/2023 Personal Safety Answer Date Recorded Have you ever been in or are you currently in a harmful physical or emotional relationship or is someone making you feel afraid or unsafe? 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 Author CCM Chronic Pain Care Plan Chronic Care Management No change(03/03 10:49 AM CAMPGROUND CARETAKER) No Nelly Flynn RN Note: Problem: Chronic Pain Goals: 1. Minimize further functional decline 2. Maximize quality of life 3. Control pain Strategies: - Activity/exercise program recommendation - Conservative stepwise pain medicine strategy with multi-disciplinary approach - Recommend healthy lifestyle strategies and compensatory methods as needed Medical Devices Implanted Type Area Saddle Stitcher Device Identifier Shelf Expiration Date Model / Serial / Lot Medtronic Inc [id number] Elevate [id number] Xlordotic Spacer Spinal Peek Titanium Sterile - [id number] Implanted:Qty: 1 on 11/07/2017 by Sudhir Rodriguez MD at [facility] N/A: Spine Lumbar Medtronic Inc [id number] / / Spinal Graft Tech [id number] Magnifuse 5x2.5cm Posterolateral Graft Bone Demineralized Bone - [id number] - [id number] Implanted:Qty: 1 on 11/07/2017 by Sudhir Rodriguez MD at [facility] N/A: Spine Lumbar Spinal Graft Tech 06/06/2019 [id number] / [id number] / Medtronic Inc [id number] 6mm 45mm Multiaxial Spine Screw Bone Cocr 5.5mm Montez - [id number] Implanted:Qty: 2 on 11/07/2017 by Sudhir Rodriguez MD at [facility] N/A: Spine Lumbar Medtronic Inc [id number] / / Medtronic Inc [id number] Solera 6.5mm 45mm Multiaxial Cannulated Spine Screw Bone Cocr 5.5 - [id number] Implanted:Qty: 2 on 11/07/2017 by Sudhir Rodriguez MD at [facility] N/A: Spine Lumbar Medtronic Inc [id number] / / Medtronic Sofamor Danek [id number] Cd Horizon Break Off Spinal Screw Set Titanium Nonsterile 5.5 Mm - [id number] Implanted:Qty: 4 on 11/07/2017 by Sudhir Rodriguez MD at [facility] N/A: Spine Lumbar Medtronic Sofamor Danek [id number] / / Medtronic Sofamor Danek [id number] 5.5mm 50mm Curve Montez Spinal Titanium Nonsterile - [id number] Implanted:Qty: 2 on 11/07/2017 by Sudhir Rodriguez MD at [facility] N/A: Spine Lumbar Medtronic Sofamor Danek [id number] / / Medtronic Inc [id number] Elevate [id number] Xlordotic Spacer Spinal Peek Titanium Sterile - [id number] Implanted:Qty: 1 on 11/07/2017 by Sudhir Rodriguez MD at [facility] N/A: Spine Lumbar Medtronic Inc [id number] / / [employer] Inc [id number] Coil [place] Embolization Micro [place]ornado .018 10mm 4mm - [id number] Implanted:Qty: 1 on 12/23/2019 at [facility] [employer] Inc [id number] 10/09/2024 [id number] / / [id number] Spinal Graft Tech [id number] Magnifuse 5x1cm Spine Cervical Posterior Graft Bone Demineralized - [id number] - [id number] Implanted:Qty: 1 on 12/25/2019 by Sudhir Rodriguez MD at [facility] Spinal Graft Tech 07/23/2021 [id number] / [id number] / Globus Medical 193.102 Rise [id number] Spacer Spinal Nonsterile - [id number] Implanted:Qty: 1 on 12/25/2019 by uSdhir Rodriguez MD at [facility] Gl[employer] Medical 193.102 / / Medtronic Sofamor Danek [id number] Cd Horizon Break Off Spinal Screw Set Titanium Nonsterile 5.5 Mm - [id number] Implanted:Qty: 8 on 12/25/2019 by Sudhir Rodriguez MD at [facility] Medtronic Inc [id number] / / Medtronic Sofamor Danek [id number] Solera Cd Horizon 6.5mm 45mm Multiaxial Spine Screw Bone Cocr - [id number] Implanted:Qty: 6 on 12/25/2019 by Sudhir Rodriguez MD at [facility] Medtronic Inc [id number] / / Medtronic Inc [id number] Cd Horizon 6mm 500mm Line Straight Montez Spinal Titanium Nonsterile - [id number] Implanted:Qty: 1 on 12/25/2019 by Sudhir Rodriguez MD at [facility] Medtronic Inc [id number] / / Spinal Graft Tech [id number] Magnifuse 10x1cm Graft Bone Demineralized Bone Matrix - [id number] - [id number] Implanted:Qty: 1 on 12/25/2019 by Sudhir Rodriguez MD at [facility] Spinal Graft Tech 11/11/2021 [id number] / [id number] / Procedures Procedure Name Priority Date/Time Associated Diagnosis Comments PAP WITH REFLEX TO HIGH RISK HPV Routine 08/25/2021 12:03 PM CDT Cervical cancer screening LIPID PANEL STAT 12/25/2019 1:19 PM CDT POCT HEMOGLOBIN A1C Routine 12/23/2019 1 :44 PM CDT from Last 3 Months or Most Recently Relevant to Health Maintenance Results * Pap with reflex to High Risk HPV (08/25/2021 12:03 PM CDT) Thin prep (Pap test) 08/25/2021 12:03 PM CDT 08/25/2021 2:28 PM CDT Narrative PATHOLOGY [facility] - 08/29/2021 1:59 PM CDT EPIC results best viewed via link to PDF [facility] [place] [address] Note to Patients: This report may contain a detailed description of human tissue sent by a health care provider to the laboratory for pathologic evaluation. The content of this report is essential for diagnosis and may provide important critical findings. This information may be unfamiliar to patients to review without a medical professional present. It is advised that the patient review this report in the presence of a health care provider who can answer questions and explain the details. CYTOPATHOLOGY REPORT FINAL Patient Name: EMILIO STOCK Gender: F : 1960 (Age: 61) Address: [address] [place], [place] [address] Hospital #: [id number] Service: Gynecology Location: Patient Type: [facility] SPECIMEN Taken: 08/25/2021 Received: 08/25/2021 Accessioned: 08/25/2021 Reported: 08/29/2021 Physician(s): Rachel Fitch M.D. FINAL INTERPRETATION SOURCE OF SPECIMEN: Liquid based Thin Prep pap with Reflex HPV STATEMENT OF ADEQUACY: - Satisfactory for evaluation - Endocervical cells/transformation zone sample present GENERAL CATEGORY: - Negative for squamous intraepithelial lesion or malignancy /08/29/2021 13:59 NATALIYA Mckeon(ASCP) Report Electronically Reviewed and Signed Out By NATALIYA Mckeno(ASCP) 08/29/2021 13:59:54 Cervicovaginal Cytology (Pap Test) Disclaimer: The Pap test is a screening test used to detect cervical cancer and its precursors; it is not a diagnostic procedure. False negative and false positive results do occur. Pap test results should be interpreted in the context of pertinent clinical information and biopsy results as indicated. Gross Description A. Liquid based Thin Prep pap with Reflex HPV: Cervical/vaginal - Screening ThinPrep Clinical Diagnosis and History Last Menstrual Period: None Menstrual History: Post-menopausal The patient is a 61 year old woman with routine. Report Images and scanned documents, if included only viewable in PDF version The performance characteristics of some immunohistochemical stains, in-situ hybridization and fluorescence in-situ hybridization tests and immunophenotyping by flow cytometry cited in this report (if any) were determined by the Surgical Pathology Department at [facility] as part of an ongoing clinical quality assurance associate program and in compliance with federally mandated regulations drawn from the Clinical Laboratory Improvement Act of 1988 (CLIA '88). Some of these tests rely on the use of analyte specific reagents and are subject to specific labeling requirements by the US Food and Drug Administration. Such diagnostic tests may only be performed in a facility that is certified by the Department of Health and Human Services as a high complexity laboratory under CLIA '88. The FDA has determined that such clearance or approval is not necessary. This test is used for clinical purposes. It should not be regarded as investigational or for research. Nevertheless, federal rules concerning the medical use of analyte specific reagents require that the following disclaimer be attached to the report: This test was developed and its performance characteristics determined by the Surgical Pathology Department of [facility]. It has not been cleared or approved by the U. S. Food and Drug Administration. Rachel Fitch MD LAB CYTOLOGY ORDERABLES F inal Result PATHOLOGY [facility] 3rd Floor [place], [place] [phone] * (ABNORMAL) Lipid panel (12/25/2019 1:19 PM CDT) [facility] Signature Cholesterol 107 30 - 199 mg/dL [facility] Comment: Interpretive Data Ages < or = 19 years Acceptable: <170 mg/dL Borderline high: 170-199 mg/dL High: >or= 200 mg/dL Ages > or = 20 years Desirable: <200 mg/dL Borderline high: 200-239 mg/dL High: >or= 240 mg/dL Literature References: 1. Expert Panel on Integrated Guidelines for Cardiovascular Health and Risk Reduction in Children and Adolescents. Pediatrics 2011;128:S213 2. NCEP Expert Panel. Circulation 2004;110:227 Current Interpretive Data was last revised on 2017. Triglycerides 65 <=149 mg/dL [facility] Comment: Interpretive Data Ages < or = 9 years Acceptable: <75 mg/dL Borderline high: 75-99 mg/dL High: >or= 100 mg/dL Ages 10 to 20 years Acceptable: <90 mg/dL Borderline high: 90-129 mg/dL High: >or= 130 mg/dL Ages > or = 20 years Desirable: <150 mg/dL Borderline high: 150-199 mg/dL High: 200-499 mg/dL Very high: >or= 499 mg/dL Literature References: 1. Expert Panel on Integrated Guidelines for Cardiovascular Health and Risk Reduction in Children and Adolescents. Pediatrics 2011;128:S213 2. NCEP Expert Panel. Circulation 2004;110:227 Current Interpretive Data was last revised on 2017. HDL 33(L) >=40 mg/dL [facility] Comment: Interpretive Data Ages < or = 19 years Acceptable: >45 mg/dL Borderline low: 40-45 mg/dL Low: <40 mg/dL Ages > or = 20 years Desirable: >or= 60 mg/dL Low: <40 mg/dL Literature References: 1. Expert Panel on Integrated Guidelines for Cardiovascular Health and Risk Reduction in Children and Adolescents. Pediatrics 2011;128:S213 2. NCEP Expert Panel. Circulation 2004;110:227 Current Interpretive Data was last revised on 2017. LDL, calculated 61 <=129 mg/dL [facility] Comment: Interpretive Data Ages < or = 19 years Acceptable: <110 mg/dL Borderline high: 110-129 mg/dL High: >or= 130 mg/dL Ages > or = 20 years Optimal: <100 mg/dL Near optimal: 100-129 mg/dL Borderline high: 130-159 mg/dL High: >160 mg/dL Literature References: 1. Expert Panel on Integrated Guidelines for Cardiovascular Health and Risk Reduction in Children and Adolescents. Pediatrics 2011;128:S213 2. NCEP Expert Panel. Circulation 2004;110:227 Current Interpretive Data was last revised on 2017. Non-HDL Cholesterol 74 mg/dL [facility] Comment: Interpretive Data Ages < or = 19 years Acceptable: <120 mg/dL Borderline high: 120-144 mg/dL High: >145 mg/dL Ages > or = 20 years When triglycerides are >200 mg/dL, Non-HDL cholesterol is a secondary target of therapy with treatment goals that are 30 mg/dL greater than the LDL cholesterol target. Literature References: 1. Expert Panel on Integrated Guidelines for Cardiovascular Health and Risk Reduction in Children and Adolescents. Pediatrics 2011;128:S213 2. NCEP Expert Panel. Circulation 2004;110:227 Current Interpretive Data was last revised on 2017. Chol/HDL ratio 3 [facility] Blood specimen (specimen) 12/25/2019 1:19 PM CDT 12/25/2019 5:14 PM CDT Sudhir Rodriguez MD LAB BLOOD ORDERABLES Final Result [facility] [place] [address] * (ABNORMAL) POCT hemoglobin A1c (12/23/2019 1:44 PM CDT) Hgb A1C, POC 6.3(H) 4.0 - 6.0 % [facility] Est Average Gluc POC 134 mg/dL [facility] Comment: The ADA recommends reporting an estimated Average Glucose (eAG) with all Hemoglobin A1c results using the equation derived from a study of 507 normal and diabetic adults. Minority populations were underrepresented and children were not included. (Diabetes Care 31:0560-3624, 2008). The eAG is not equivalent to a fasting glucose. Blood specimen (specimen) 12/23/2019 1:44 PM CDT 12/23/2019 1:44 PM CDT Sudhir Rodriguez MD POINT OF CARE TEST ORDERAB LES Final Result [facility] [place] [address] from Last 3 Months or Most Recently Relevant to Health Maintenance Insurance * Guarantor: Emilio Stock Account Type Relation to Patient Date of Phone Billing Address Personal/Family Self 1960 [phone] (Work) [address] [place] [address] MEDICARE PHYSICIANS [facility] INS [place] [employer] PPO POS [facility] Address: [address] [place] [address] MEDICARE MEDICARE PHYSICIANS [employer]I Advance Directives For more information, please contact: [phone] * Full Code (Latest Code Status on File) Date Activated Date Inactivated Comments 12/25/2019 5:27 PM 12/30/2019 10:32 PM * Full Code Date Activated Date Inactivated Comments 12/23/2019 10:01 AM 12/24/2019 4:59 AM * Full Code Date Activated Date Inactivated Comments 11/07/2017 5:33 PM 11/13/2017 5:05 PM Care Teams Outboard System Operator Relationship Specialty Start Date End Date Ricky Aburto MD [address] [place] [address] PCP - General 10/09/17 Jazmine Mclean RN Registered Nurse 03/03/19 Sudhir Rodriguez MD [address] [place] [address] Surgeon Neurosurgery 12/23/22 Annie Omer MD [address] [place] [address] Referring Physician Physical Medicine and Rehabilitation 12/23/22
--- OUTSIDE RECORDS SUMMARY | 2024-07-09 14:56 | XMS_ITS ---
Author Organization [facility] Address [address] [place], [place] [address] Care Team Providers Care Sport Shoe Spike Assembler Name Role Phone RATNA STEF Unavailable [phone] REASON FOR VISIT Diabetic shoes Encounters Encounter Location Date Provider Diagnosis [place] [address] [place], [place] [id number] 11/22/2023 STEF SEGUNDO Plan Of Treatment No Information Progress Notes * Pamela [birth year]DOB:[birth year] (64 yo F)Acc No.[id number]:11/22/2023 Progress Notes Patient: Pamela ROY Provider: Vee SEGUNDO :1960 A ge:63 Y S ex:Female Date:11/22/2023 Address:[address] [facility] Subjective: * Chief Complaints: * 1 . Diabetic shoes. * Medical History: Objective: * Vitals: Assessment: Plan: * Treatment: * Billing Information: * Visit Code: * Procedure Codes: * Electronic signature of CLAUDETTE SEGUNDO DPM on 07/09/2024 at 02:56 PM CDT Sign off status: Pending * Provider: Vee SEGUNDO Date: 0 11/22/2023 Generated for Georgie cameron/Kaylah/Yanely on: 0 07/09/2024 02:56 PM CDT
--- OUTSIDE RECORDS SUMMARY | 2024-07-09 14:56 | XMS_ITS | Clinical Summary ---
Author Organization [facility] Address [address] [place] [address] Care Team Providers Care Principal Network Engineer Name Role Phone Ricky Aburto MD Primary Care Provider + [phone] Jazmine Mclean RN Unavailable Unavailab Sudhir Miller MD Unavailable [phone] Annie Omer MD Unavailable [phone] Allergies Active Allergy Reactions Criticality Noted Date [...] 1 tablet (81 mg total) by mouth heel seat fitter before breakfast PLEASE HOLD FOR 1 WEEK [...] 06/20/2021 Assessment & Plan (06/20/2021 10:41 AM RN FACULTY): Irregular tear film, low tbut OU and chemosis temporally OS>OD. Recommend restarting Maxitrol BID OU x2 wks. Educated to call if s/s worsen or dni. Keep 09/05/21 strab post op. Strabismus 12/29/2020 Overview (12/29/2020): Added automatically from request for surgery [id number] Exotropia 11/25/2020 Assessment & Plan (09/05/2021 10:07 [...] (12/16/2019): Added automatically from request for surgery [id number] Lumbosacral spondylosis without myelopathy 10/15 Other chronic [...] (11/07/2017): Added automatically from request for surgery [id number] Knee pain 10/04/2012 Cheilitis 03/13/2011 Dermatofibroma 03/13/2011 [...] 13 01/14/2015 Tdap 01/15/2016 ZOSTER Recombinant 04/02/2019,11/14/2018 Surgical History Surgery Date Site/Laterality Comments HI OOPHORECTOMY PARTIAL/TOTAL UNI/BI Oophorectomy - (Added by TW Conv) CATARACT EXTRACTION Cataract Surgery - (Added by TW Conv) ENDOMETRIAL ABLATION BACK SURGERY 10/14/2017 - 11/13/2017 SPINAL FUSION THYROID SURGERY Bx LUMBAR FUSION 04/16/2017 - 04/15/2018 SPINE SURGERY EYE MUSCLE SURGERY correction 2021 Medical History Medical History Date Comments Inflamed seborrheic keratosis In flamed seborrheic keratosis - Inflamed Seborrheic Keratosis (Added by TW Conv) Personal history of diseases of skin or subcutaneous tissue History of actinic keratosis - (Added by TW Conv) Encounter for gynecological examination without abnormal finding Encounter for routine gyneco logical examination - (Added by TW Conv) Hypertension High cholesterol Peripheral neuropathy Lumbar herniated disc Bulging lumbar disc Diabetes mellitus (HCC) High cholesterol Type 2 diabetes mellitus (HCC) Obesity Back pain Hip pain Hypertension Diabetes (HCC) Chronic pain disorder Hip pain, right Back pain Heart disease Depression Family History Medical History Relation Name Comments Cancer Father Diabetes Father Heart disease Father Hypertension Father Pancreatic cancer Father Carcinoma Of The Pancreas - (Added by TW Conv) Cancer Maternal Grandfather Cancer Maternal Grandmother Lupus Mother Systemic Lupus Erythematosus - (Added by TW Conv) Breast cancer Mother's Sister 1 Breast Ca ncer - (Added by TW Conv) Ovarian cancer Mother's Sister 2 Ovarian Cancer - (Added by TW Conv) Diabetes Paternal Grandfather Diabetes Paternal Grandmother Cancer Sister 1 Diabetes Sister 1 Diabetes Mellit us - (Added by TW Conv) Hypertension Sister 2 Hypertension - (Added by TW Conv) Anesthesia problems Neg Hx Relation Name Status Comments Father Maternal Grandfather Maternal Grandmother Mother Mother's Sister 1 Mother's Sister 2 Paternal Grandfather Paternal Grandmother Sister 1 Sister 2 Social History Tobacco Use Types Packs/Day Years [...] on file Legal Sex Female 12:18 PM RN FACULTY Gender Identity Female 01/26/2020 8:54 AM CDT Sexual Orientation Straight 01/26/2020 8: 54 AM CDT 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 on file Not on file Not on file Obstetrics History Para Term AB IAB SAB Ectopic Multiple Livin g Live Births 1 1 1 1 1 Date Outcome GA Total Labor Labor/2nd/3rd Weight Sex Type Anes PTL Evangelina A1 A5 Name Clin 1989 Term 3.345 kg (7 lb 6 oz) F Vag-S pont Living Complications:None Last Filed Vital Signs Vital Sign Reading [...] 12/31/2023 10:04 AM CDT Plan of Treatment Health Maintenance Due Date Last Done Comments Albumin Creatinine Ratio, Urine 1960 Breast Cancer Screening-Mammogram 1960 Colon Cancer Screening-Colonoscopy 1960 Depression Screening 1960 Hepatitis C Screening 1960 eGFR 1960 Foot Exam 1960 Hepatitis B Screening 1978 Regular Well Visit/Exam 18-64 1978 Pneumococcal vaccine <65 (2 of 2 - PPSV23) 03/11/2015 01/14/2015 Hemoglobin A1C 06/21/2020 12/23/2019 Lipid Panel 12/24/2020 12/25/2019, 11/08/2017 Dilated Eye Exam 11/17/2021 11/17/2020 Cervical Cancer Screening 08/25/2022 08/25/2021 Covid-19 Vaccine (2023-2 5 season) 2023 07/16/2020, 06/18/2020 Influenza Vaccine (#1) 2023 , 01/10/2018, 03/02/2016, Additional history exists DTaP/Tdap/Td Vaccine (2 - Td or Tdap) 01/14/2026 01/15/2016 Zoster Vaccine Completed 04/02/2019, 11/14/2018 Goals Goal Patient Goal Type Associated Problems Recent Progress Patient-Stated? Author CCM Chronic Pain Care Plan Chronic Care Management No change(03/03 10:49 AM RN FACULTY) No Nelly Flynn, RN Note: Problem: Chronic Pain Goals: 1. Minimize further functional decline 2. Maximize quality of life 3. Control pain Strategies: - Activity/exercise program recommendation - Conservative stepwise pain medicine strategy with multi-disciplinary approach - Recommend healthy lifestyle strategies and compensatory methods as needed Medical Devices Implanted Type Area Consulting Intern Device Identifier Shelf Expiration Date Model / Serial / Lot Medtronic Inc [id number] Elevate 21wgg4ms Xlordotic Spacer Spinal Peek Titanium Sterile - [id number] Implanted:Qty: 1 on 11/07/2017 by Sudhir Rodriguez MD at [facility] N/A: Spine Lumbar Medtronic Inc [id number] / / Spinal Graft Tech [id number] Magnifuse 5x2.5cm Posterolateral Graft Bone Demineralized Bone - [id number] - [id number] Implanted:Qty: 1 on 11/07/2017 by Sudhir Rodriguez MD at [facility] N/A: Spine Lumbar Spinal Graft Tech 06/06/2019 [id number] / [id number] / Medtronic Inc [id number] 6mm 45mm Multiaxial Spine Screw Bone Cocr 5.5mm Montez - [id number] Implanted:Qty: 2 on 11/07/2017 by Sudhir Rodriguez MD at [facility] N/A: Spine Lumbar Medtronic Inc [id number] / / Medtronic Inc [id number] Solera 6.5mm 45mm Multiaxial Cannulated Spine Screw Bone Cocr 5.5 - [id number] Implanted:Qty: 2 on 11/07/2017 by Sudhir Rodriguez MD at [facility] N/A: Spine Lumbar Medtronic Inc [id number] / / Medtronic Sofamor Danek [id number] Cd Horizon Break Off Spinal Screw Set Titanium Nonsterile 5.5 Mm - [id number] Implanted:Qty: 4 on 11/07/2017 by Sudhir Rodriguez MD at [facility] N/A: Spine Lumbar Medtronic Sofamor Danek [id number] / / Medtronic Sofamor Danek [id number] 5.5mm 50mm Curve Montez Spinal Titanium Nonsterile - [id number] Implanted:Qty: 2 on 11/07/2017 by Sudhir Rodriguez MD at [facility] N/A: Spine Lumbar Medtronic Sofamor Danek [id number] / / Medtronic Inc [id number] Elevate [id number] Xlordotic Spacer Spinal Peek Titanium Sterile - [id number] Implanted:Qty: 1 on 11/07/2017 by Sudhir Rodriguez MD at [facility] N/A: Spine Lumbar Medtronic Inc [id number] / / Cook Medical Inc [id number] Coil [place] Embolization Micro Tornado .018 10mm 4mm - [id number] Implanted:Qty: 1 on 12/23/2019 at [facility] [employer] Inc [id number] 10/09/2024 [id number] / / [id number] Spinal Graft Tech [id number] Magnifuse 5x1cm Spine Cervical Posterior Graft Bone Demineralized - [id number] - [id number] Implanted:Qty: 1 on 12/25/2019 by Sudhir Rodriguez MD at [facility] Spinal Graft Tech 07/23/2021 [id number] / [id number] / Globus Medical 193.102 Rise [id number] Spacer Spinal Nonsterile - [id number] Implanted:Qty: 1 on 12/25/2019 by Sudhir Rodriguez MD at [facility] Globus Medical [id number] / / Medtronic Sofamor Danek [id number] Cd Horizon Break Off Spinal Screw Set Titanium Nonsterile 5.5 Mm - [id number] Implanted:Qty: 8 on 12/25/2019 by Sudhir Rodriguez MD at [facility] Medtronic Inc [id number] / / Medtronic Sofamor Danek [id number] Solera Cd Horizon 6.5mm 45mm Multiaxial Spine Screw Bone Cocr - [id number] Implanted:Qty: 6 on 12/25/2019 by Sudhir Rodriguez MD at [facility] Medtronic Inc [id number] / / Medtronic Inc [id number] Cd Horizon 6mm 500mm Line Straight Montez Spinal Titanium Nonsterile - [id number] Implanted:Qty: 1 on 12/25/2019 by Sudhir Rodriguez MD at [facility] Medtronic Inc [id number] / / Spinal Graft Tech [id number] Magnifuse 10x1cm Graft Bone Demineralized Bone Matrix - [id number] - [id number] Implanted:Qty: 1 on 12/25/2019 by Sudhir Rodriguez MD at [facility] Spinal Graft Tech 11/11/2021 [id number] / [id number] / Procedures Procedure Name Priority Date/Time Associated [...] CDT 08/25/2021 2:28 PM CDT Narrative PATHOLOGY [facility] - 08/29/2021 1:59 PM CDT EPIC results best viewed via link to PDF [facility] Latisha Pedersen [facility] [place] [address] Note to Patients: This report may contain [...] Gender: F : 1960 (Age: 61) Address: [address] [place], [place] [address] Hospital #: [id number] Service: Gynecology Location: Patient Type: [facility] SPECIMEN Taken: 08/25/2021 Received: 08/25/2021 Accessioned: 08/25/2021 Reported: 08/29/2021 Physician(s): Rachel Fitch M.D. FINAL INTERPRETATION SOURCE OF SPECIMEN: Liquid based Thin Prep pap with Reflex HPV STATEMENT OF ADEQUACY: - Satisfactory for evaluation - Endocervical cells/transformation zone sample present GENERAL CATEGORY: - Negative for squamous intraepithelial lesion or malignancy ml/08/29/2021 13:59 NATALIYA Mckeon(ASCP) Report Electronically Reviewed and Signed Out By NATALIYA Mckeon(ASCP) 08/29/2021 13:59:54 Cervicovaginal Cytology (Pap Test) Disclaimer: [...] determined by the Surgical Pathology Department at [facility] as part of an ongoing senior quality technician program and in compliance with federally mandated [...] determined by the Surgical Pathology Department of [facility]. It has not been cleared or approved by the U. S. Food and Drug Administration. Rachel Fitch MD LAB CYTOLOGY ORDERABLES F inal Result PATHOLOGY [facility] 3rd Floor [place], [place] [phone] * (ABNORMAL) Lipid panel (12/25/2019 1:19 PM CDT) Cholesterol 107 30 - 199 mg/dL [facility] Comment: Interpretive Data Ages < or = [...] revised on 2017. Triglycerides 65 <=149 mg/dL [facility] Comment: Interpretive Data Ages < or = [...] revised on 2017. HDL 33(L) >=40 mg/dL [facility] Comment: Interpretive Data Ages < or [...] on 2017. LDL, calculated 61 <=129 mg/dL [facility] Comment: Interpretive Data Ages < or = [...] revised on 2017. Non-HDL Cholesterol 74 mg/dL [facility] Comment: Interpretive Data Ages < or [...] last revised on 2017. Chol/HDL ratio 3 [facility] Blood specimen (specimen) 12/25/2019 1:19 PM CDT 12/25/2019 5:14 PM CDT us Sudhir Rodriguez MD LAB BLOOD ORDERABLES Final Result Performing Organization Address City/[facility] Co de Phone Number [facility] Department [place] [address] * (ABNORMAL) POCT hemoglobin A1c (12/23/2019 1:44 PM CDT) Hgb A1C, POC 6.3(H) 4.0 - 6.0 % [facility] Est Average Gluc POC 134 mg/dL [facility] Comment: The ADA recommends reporting an estimated Average Glucose (eAG) with all Hemoglobin A1c results using the equation derived from a study of 507 normal and diabetic adults. Minority populations were underrepresented and children were not included. (Diabetes Care 31:3575-6330, 2008). The eAG is not equivalent to a fasting glucose. Blood specimen (specimen) 12/23/2019 1:44 PM CDT 12/23/2019 1:44 PM CDT Sudhir Rodriguez MD POINT OF CARE TEST ORDERAB LES Final Result Performing Organization Address [facility] Co de Phone Number [facility] Department [place] [address] from Last 3 Months or Most Recently Relevant to Health Maintenance Insurance * Guarantor: Emilio Stock Account Type Relation to Patient Date of Phone Billing Address Personal/Family Self 1960 [phone] (Work) [address] [place] [address] MEDICARE PHYSICIANS [employer] PPO POS [facility] ACCESS MEDICARE MEDICARE PHYSICIANS [facility] INS [place] [facility] Advance Directives For more information, please contact: [phone] * Full Code (Latest Code Status on File) Date Activated Date Inactivated Comments 12/25/2019 5:27 PM 12/30/2019 10:32 PM * Full Code Date Activated Date Inactivated Comments 12/23/2019 10:01 AM 12/24/2019 4:59 AM * Full Code Date Activated Date Inactivated Comments 11/07/2017 5:33 PM 11/13/2017 5:05 PM Care Teams Principal Network Engineer Relationship Specialty Start Date End Date Ricky Aburto MD [address] [place] [address] PCP - General 10/09/17 Jazmine Mclean RN Registered Nurse 03/03/19 Sudhir Rodriguez MD [address] [place] [address] Surgeon Neurosurgery 12/23/22 Annie Omer MD [address] [place] [address] Referring Physician Physical Medicine and Rehabilitation 12/23/22
--- OUTSIDE RECORDS SUMMARY | 2024-07-09 14:56 | XMS_ITS | Patient Health Record ---
Author Organization [facility] Address [address] [facility] [address] [place], [place] [id number] Care Team Providers Care Red Cap Name Role Phone STEF SEGUNDO Unavailable [phone] Reason For Referral No Information Plan Of Treatment No Information
--- OUTSIDE RECORDS SUMMARY | 2024-07-09 14:56 | XMS_ITS | Encounter Summary ---
Author Organization [facility] Address [address] [place] [address] Phone Care Team Providers Care Tick Eradicator Name Role Phone Ricky Aburto MD Primary Care Provider [phone] Jazmine Mclean RN Unavailable Unavailab le Charlene Duke DPT Unavailable [phone] Charlene Duke DPT Unavailable [phone] Sudhir Rodriguez MD Unavailable Annie Omer MD Unavailable [phone] Encounter Details Date Type Department Care Team (Latest Contact Info) Description 09/15/2020 Orders Only [facility] Annie Omer MD [address] [facility] [address] [place] [address] Social History Tobacco Use Types Packs/Day Years Used Date Smoking Tobacco: Former Cigarettes 0.5 22.3 0 12/23/1975 - 04/16/1998 Smokeless Tobacco: Never Alcohol Use Standard Drinks/Week Comments No 0 (1 standard drink = 0.6 oz pur e alcohol) Comments No Sex and Gender Information Value Date Recorded Sex Assigned at Not on file Legal Sex Female 12:18 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 Author CCM Chronic Pain Care Plan Chronic Care Management No change(03/03 10:49 AM FOUR CORNER STAYER MACHINE OPERATOR) No Nelly Flynn RN Note: Problem: Chronic Pain Goals: 1. Minimize further functional decline 2. Maximize quality of life 3. Control pain Strategies: - Activity/exercise program recommendation - Conservative stepwise pain medicine strategy with multi-disciplinary approach - Recommend healthy lifestyle strategies and compensatory methods as needed documented as of this encounter Procedures Procedure Name Priority Date/Time Associated Diagnosis Comments SCAN - LABS 09/15/2020 3:44 PM CDT documented in this encounter Results * SCAN - LABS (09/15/2020 3:44 PM CDT) Annie Omer MD Final Result documented in this encounter Visit Diagnoses Not on filedocumented in this encounter Care Teams Tick Eradicator Relationship Specialty Start Date End Date Ricky Aburto MD [address] [place] [address] PCP - General 10/09/17 Jazmine Mclean RN Registered Nurse 03/03/19 Charlene Duke DPT [address] [facility] [place] [address] Physical Therapist Physical Therapy 01/23/20 11/10/20 Charlene Duke DPT [address] [facility] [place] [address] Physical Therapist Physical Therapy 08/25/20 11/10/20 Sudhir Rodriguez MD [address] [place] [address] Surgeon Neurosurgery 12/23/22 Annie Omer MD [address] [place] [address] Referring Physician Physical Medicine and Rehabilitation 12/23/22 documented as of this encounter
--- OUTSIDE RECORDS SUMMARY | 2024-07-09 14:56 | XMS_ITS | Encounter Summary ---
Author Organization [facility] Healthcare Address [address] [place] [address] Care Team Providers Care Therapist Speech Name Role Phone Ricky Aburto MD Primary Care Provider [phone] Catie Elliott PT Unavailable Gayatri Shepard OT Unavailable [phone] Jazmine Mclean RN Unavailable Unavailab Charlene Duke DPT Unavailable Charlene Duke DPT Unavailable Sudhir Rodriguez MD Unavailable Annie Omer MD Unavailable Reason for Visit * Reason Onset Date Comments Scheduling Appointments 01/23/2019 Encounter Details Date Type Department Care Team (Late st Contact Info) Description 01/23/2019 Telephone [facility] [address] [facility] [address] [place], [place] [id number] Trenton Doyle MD [address] [facility] [address] [place], [place] [id number] Scheduling Appointments Social History Tobacco Use Types Packs/Day Years Used Date Smoking Tobacco: Former Cigarettes 1 15 1 6 - 1990 Smokeless Tobacco: Never Alcohol Use Standard Drinks/Week Comments No 0 (1 standard drink = 0.6 oz pur e alcohol) Comments No Sex and Gender Information Value Date Recorded Sex Assigned at Not on file Legal Sex Female 12:18 PM 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 Author CCM Chronic Pain Care Plan Chronic Care Management No change(03/03 10:49 AM SPOOL CLEANER HAND) No Nelly Flynn, [place] Note: Problem: Chronic Pain Goals: 1. Minimize further functional decline 2. Maximize quality of life 3. Control pain Strategies: - Activity/exercise program recommendation - Conservative stepwise pain medicine strategy with multi-disciplinary approach - Recommend healthy lifestyle strategies and compensatory methods as needed documented as of this encounter Visit Diagnoses Not on filedocumented in this encounter Care Teams Therapist Speech Relationship Specialty Start Date End Date Ricky Aburto MD [address] [place] [address] PCP - General 10/09/17 Catie Elliott PT [address] [place] [address] Physical Therapist Physical Therapy 10/25/18 04/23/19 Gayatri Shepard OT [address] [place], [place] [id number] Occupational Therapist Occupational Therapy 12/06/18 07/21/19 Jazmine Mclean RN Registered Nurse 03/03/19 Charlene Duke DPT [address] [address] Physical Therapist Physical Therapy 01/23/20 11/10/20 Charlene Duke DPT [address] [place] [address] Physical Therapist Physical Therapy 08/25/20 11/10/20 Sudhir Rodriguez MD [address] [place], [place] [id number] Surgeon Neurosurgery 12/23/22 Annie Omer MD [address] [place], [place] [id number] Referring Physician Physical Medicine and Rehabilitation 12/23/22 documented as of this encounter
== END 2024-07-09 13:49 | disposition home or self-care (01) ==
PROVIDERS: PCP Internal Medicine; Visit Provider Internal Medicine
DX: R05.9 Cough, unspecified (principal)
CPT/HCPCS: 36415; 71046; 80053; 85025; 87637; 87651

== ENCOUNTER 2024-11-27 11:50 | Outpatient (CLI) | payer MEDICARE, OTHER, SELFPAY ==
--- NOTE | ~2024-11-27 | MM_ITS ---
EXAMINATION: MM screening [facility] BI w mega HISTORY: Screening TECHNIQUE: Craniocaudal and mediolateral oblique 3-D tomosynthesis images were obtained and synthetic 2-D images were generated. CAD analysis was submitted and interpreted. COMPARISON: Comparison to multiple prior studies sequentially, with oldest reviewed study dated 09/12. BREAST PARENCHYMAL COMPOSITION: Not Dense: The breasts are almost entirely fatty. FINDINGS: There is no evidence of suspicious mass, calcification, or architectural distortion to sugg est malignancy in either breast. There has been no suspicious interval change. IMPRESSION: 1. No mammographic evidence of malignancy. 2. Recommend routine screening mammography in one year. BI-RADS Category 1: Negative Reviewed, dictated and finalized at location A.
--- OUTSIDE RECORDS SUMMARY | 2024-11-27 12:00 | XMS_ITS | Patient Health Record ---
Author Organization [facility] Address [address] [facility] [address] [place], [place] [id number] Reason For Referral No Information Plan Of Treatment No Information
--- OUTSIDE RECORDS SUMMARY | 2024-11-27 12:00 | XMS_ITS | Encounter Summary ---
Author Organization [facility] Healthcare Address [address] [place] [address] Care Team Providers Care Mortgage Closing Clerk Name Role Phone Ricky Aburto MD Primary Care Provider + [phone] Catie Elliott PT Unavailable Gayatri Shepard OT Unavailable [phone] Jazmine Mclean RN Unavailable Unavailab Charlene Duke DPT Unavailable Charlene Duke DPT Unavailable Sudhir Rodriguez MD Unavailable Annie Omer MD Unavailable Reason for Visit * Reason Onset Date Comments Scheduling Appointments 01/23/2019 Encounter Details Date Type Department Care Team (Late st Contact Info) Description 01/23/2019 Telephone [facility] [address] [facility] [address] [place], [place] [id number] Trenton Doyle MD [address] [facility] [address] [place], [place] [id number] Scheduling Appointments Social History Tobacco Use Types Packs/Day Years Used Date Smoking Tobacco: Former Cigarettes 1 15 1 6 - 1990 Smokeless Tobacco: Never Alcohol Use Standard Drinks/Week Comments No 0 (1 standard drink = 0.6 oz pur e alcohol) Comments No Sex and Gender Information Value Date Recorded Sex Assigned at Not on file 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 Author CCM Chronic Pain Care Plan Chronic Care Management No change(03/03 10:49 AM SENIOR ENGINEERING TEAM LEADER) No Nelly Flynn, CHICO Note: Problem: Chronic Pain Goals: 1. Minimize further functional decline 2. Maximize quality of life 3. Control pain Strategies: - Activity/exercise program recommendation - Conservative stepwise pain medicine strategy with multi-disciplinary approach - Recommend healthy lifestyle strategies and compensatory methods as needed documented as of this encounter Visit Diagnoses Not on filedocumented in this encounter Care Teams Mortgage Closing Clerk Relationship Specialty Start Date End Date Ricky Aburto MD [address] [place] [address] PCP - General 10/09/17 Catie Elliott PT [address] [place] [address] Physical Therapist Physical Therapy 10/25/18 04/23/19 Gayatri Shepard OT [address] [place], [place] [id number] Occupational Therapist Occupational Therapy 12/06/18 07/21/19 Jazmine Mclean RN Registered Nurse 03/03/19 Charlene Duke DPT [address] [address] Physical Therapist Physical Therapy 01/23/20 11/10/20 Charlene Duke DPT [address] [place] [address] Physical Therapist Physical Therapy 08/25/20 11/10/20 Sudhir Rodriguez MD [address] [place], [place] [phone] Surgeon Neurosurgery 12/23/22 Annie Omer MD [address] [place], [place] [id number] Referring Physician Physical Medicine and Rehabilitation 12/23/22 documented as of this encounter
--- OUTSIDE RECORDS SUMMARY | 2024-11-27 12:00 | XMS_ITS | Encounter Summary ---
Author Organization [facility] Healthcare Address [address] [place] [address] Care Team Providers Care Well Driller Helper Name Role Phone Ricky Aburto MD Primary Care Provider + [phone] Catie Elliott PT Unavailable Gayatri Shepard OT Unavailable [phone] Jazmine Mclean RN Unavailable Unavailab Charlene Duke DPT Unavailable Charlene Duke DPT Unavailable Sudhir Rodriguez MD Unavailable Annie Omer MD Unavailable Reason for Visit * Reason Onset Date Comments FYI 08/27/2018 Encounter Details Date Type Department Care Team (Late st Contact Info) Description 08/27/2018 Telephone [facility] [address] [facility] Medicine [address] [place], [place] [phone] Trenton Doyle MD [address] [facility] [address] [place], [place] [id number] FYI Social History Tobacco Use Types Packs/Day Years Used Date Smoking Tobacco: Former Cigarettes 1 15 1 6 - 1990 Smokeless Tobacco: Never Alcohol Use Standard Drinks/Week Comments No 0 (1 standard drink = 0.6 oz pur e alcohol) Comments No Sex and Gender Information Value Date Recorded Sex Assigned at Not on file Legal Sex Female 12:18 PM HEEL BRUSHER Gender Identity Female 01/26/2020 8:54 AM CDT Sexual Orientation Straight 01/26/2020 8: 54 AM CDT 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 Author CCM Chronic Pain Care Plan Chronic Care Management No change(03/03 10:49 AM HEEL BRUSHER) No Nelly Flynn, CHICO Note: Problem: Chronic Pain Goals: 1. Minimize further functional decline 2. Maximize quality of life 3. Control pain Strategies: - Activity/exercise program recommendation - Conservative stepwise pain medicine strategy with multi-disciplinary approach - Recommend healthy lifestyle strategies and compensatory methods as needed documented as of this encounter Visit Diagnoses Not on filedocumented in this encounter Care Teams Well Driller Helper Relationship Specialty Start Date End Date Ricky Aburto MD [address] [place] [address] PCP - General 10/09/17 Catie Elliott PT [address] [place] [address] Physical Therapist Physical Therapy 10/25/18 04/23/19 Gayatri Shepard OT [address] [place], [place] [address] Occupational Therapist Occupational Therapy 12/06/18 07/21/19 Jazmine Mclean RN Registered Nurse 03/03/19 Charlene Duke DPT [address] [address] Physical Therapist Physical Therapy 01/23/20 11/10/20 Charlene Duke DPT [address] [place] [address] Physical Therapist Physical Therapy 08/25/20 11/10/20 Sudhir Rodriguez MD [address] [place], [place] [phone] Surgeon Neurosurgery 12/23/22 Annie Omer MD [address] [place], [place] [address] Referring Physician Physical Medicine and Rehabilitation 12/23/22 documented as of this encounter
--- OUTSIDE RECORDS SUMMARY | 2024-11-27 12:01 | XMS_ITS | Encounter Summary ---
Author Organization [facility] Address [address] [place] [address] Phone Care Team Providers Care Cullet Crusher Name Role Phone Ricky Aburto MD Primary Care Provider [phone] Jazmine Mclean RN Unavailable Unavailab le Charlene Duke DPT Unavailable [phone] Charlene Duke DPT Unavailable [phone] Sudhir Rodriguez MD Unavailable Annie Omer MD Unavailable Encounter Details Date Type Department Care Team (Latest Contact Info) Description 09/15/2020 Orders Only [facility] Annie Omer MD [address] [facility] [address] [place] [address] Social History Tobacco Use Types Packs/Day Years Used Date Smoking Tobacco: Former Cigarettes 0.5 22.3 0 12/23/1975 - 04/16/1998 Smokeless Tobacco: Never Alcohol Use Standard Drinks/Week Comments No 0 (1 standard drink = 0.6 oz pur e alcohol) Comments No Sex and Gender Information Value Date Recorded Sex Assigned at Not on file Legal Sex Female 12:18 PM 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 Author CCM Chronic Pain Care Plan Chronic Care Management No change(03/03 10:49 AM LOADING MACHINE OPERATOR HELPER) No Nelly Flynn RN Note: Problem: Chronic [...] on filedocumented in this encounter Care Teams Cullet Crusher Relationship Specialty Start Date End Date Ricky Aburto MD [address] [place] [address] PCP - General 10/09/17 Jazmine Mclean RN Registered Nurse 03/03/19 Charlene Duke DPT [address] [facility] [place] [address] Physical Therapist Physical Therapy 01/23/20 11/10/20 Charlene Duke DPT [address] [facility] [place] [address] Physical Therapist Physical Therapy 08/25/20 11/10/20 Sudhir Rodriguez MD [facility] [address] [place] [address] Surgeon Neurosurgery 12/23/22 Annie Omer MD [address] [place] [address] Referring Physician Physical Medicine and Rehabilitation 12/23/22 documented as of this encounter
--- OUTSIDE RECORDS SUMMARY | 2024-11-27 12:01 | XMS_ITS ---
Author Organization [facility] Address [address] [place], [place] [address] Care Team Providers Care Manager Night Name Role Phone RATNA STEF Unavailable [phone] REASON FOR VISIT Diabetic shoes Encounters Encounter Location Date Provider Diagnosis [place] [address] [place], [place] [phone] 11/22/2023 STEF SEGUNDO Plan Of Treatment No Information Progress Notes * Pamela STOCKDOB:[birth year] (64 yo F)Acc No.[id number]:11/22/2023 Progress Notes Patient: Pamela ROY Provider: Vee SEGUNDO :1960 A ge:63 Y S ex:Female Date:11/22/2023 Address:[address] [facility] Subjective: * Chief Complaints: * 1 . Diabetic shoes. * Medical History: Objective: * Vitals: Assessment: Plan: * Treatment: * Billing Information: * Visit Code: * Procedure Codes: * Electronic signature of CLAUDETTE SEGUNDO DPM on 11/27/2024 at 12:00 PM CDT Sign off status: Pending * Provider: Vee SEGUNDO Date: 11/22/2023 Generated for Georgie cameron/Kaylah/Yanely on: 11/27/2024 12:00 PM CDT
--- OUTSIDE RECORDS SUMMARY | 2024-11-27 12:01 | XMS_ITS | Clinical Summary ---
Author Organization [facility] Address [address] [place] [address] Care Team Providers Care Saw Sharpener Name Role Phone Ricky Aburto MD Primary Care Provider + [phone] Jazmine Mclean RN Unavailable Unavailab Sudhir Miller MD Unavailable [phone] Annie Omer MD Unavailable [phone] Allergies Active Allergy Reactions Criticality Noted Date [...] 1 tablet (81 mg total) by mouth life skills educator before breakfast PLEASE HOLD FOR 1 WEEK [...] 06/20/2021 Assessment & Plan (06/20/2021 10:41 AM BIOMETRICS ANALYST): Irregular tear film, low tbut OU and chemosis temporally OS>OD. Recommend restarting Maxitrol BID OU x2 wks. Educated to call if s/s worsen or dni. Keep 09/05/21 strab post op. Strabismus 12/29/2020 Overview (12/29/2020): Added automatically from request for surgery [id number] Exotropia 11/25/2020 Assessment & Plan (09/05/2021 10:07 [...] (12/16/2019): Added automatically from request for surgery [id number] Lumbosacral spondylosis without myelopathy 10/15 Other chronic [...] (11/07/2017): Added automatically from request for surgery [id number] Knee pain 10/04/2012 Cheilitis 03/13/2011 Dermatofibroma 03/13/2011 Skin tag 11/07/2010 Overview (07/27/2017): Description: Acrochordon Hypertension 04/05/2010 Diabetes mellitus 04/05/2010 Hyperlipidemia 04/05/2010 Thyroid nodule Encounters Date Type Department Care Team Description 11/21/2024 Telephone [facility] Orthopaedic Surgery [address] [facility] [address]th [place] [address] [place] [address] Annie Omer MD 11/18/2024 Telephone [facility] Otolaryngology [address] [place] [address] Bonny Romero, 10/16/2024 Orders Only [facility] Health Information Management [address] [facility] [place] [address] Scanning, Provider 10/16/2024 Telephone [facility] Orthopaedic Surgery [address] [facility] [address]th [place] [address] [place] [address] Annie Omer MD from Last 3 Months Immunizations Immunization Administration Dates Next Due Influenza, [...] 04/02/2019,11/14/2018 Surgical History Surgery Date Site/Laterality Comments [place] OOPHORECTOMY PARTIAL/TOTAL UNI/BI Oophorectomy - (Added by [...] (HCC) High cholesterol Type 2 diabetes mellitus Obesity Back pain Hip pain Hypertension Diabetes [...] on file Legal Sex Female 12:18 PM BIOMETRICS ANALYST Gender Identity Female 01/26/2020 8:54 AM CDT Sexual Orientation Straight 01/26/2020 8: 54 AM CDT 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 Not on file [...] 10:04 AM CDT Height 172.7 cm (5' 8) 12/31/2023 10:0 4 AM CDT Body Mass [...] Pneumococcal vaccine <65 (2 of 2 - PPSV23, PCV20, or PCV21) 03/11/2015 01/14/2015 Hemoglobin A1C 06/21/2020 12/23/2019 Lipid Panel 12/24/2020 12/25/2019, 11/08/2017 Dilated Eye Exam 11/17/2021 11/17/2020 Cervical Cancer Screening 08/25/2022 08/25/2021 Covid-19 Vaccine (3 - 2023-2 5 season) 2023 07/16/2020, 06/18/2020 Influenza Vaccine (#1) 2024 , 01/10/2018, 03/02/2016, Additional history exists DTaP/Tdap/Td Vaccine (2 - Td or Tdap) 01/14/2026 01/15/2016 Zoster Vaccine Completed 04/02/2019, 11/14/2018 Goals Goal Patient Goal Type Associated Problems Recent Progress Patient-Stated? Author CCM Chronic Pain Care Plan Chronic Care Management No change(03/03 10:49 AM BIOMETRICS ANALYST) Nelly Lloyd, RN Note: Problem: Chronic Pain Goals: 1. Minimize further functional decline 2. Maximize quality of life 3. Control pain Strategies: - Activity/exercise program recommendation - Conservative stepwise pain medicine strategy with multi-disciplinary approach - Recommend healthy lifestyle strategies and compensatory methods as needed Medical Devices Implanted Type Area Service Station Equipment Mechanic Device Identifier Shelf Expiration Date Model / Serial / Lot Medtronic Inc [id number] Elevate [id number] Xlordotic Spacer Spinal Peek Titanium Sterile - [id number] Implanted:Qty: 1 on 11/07/2017 by Sudhir Rodriguez MD at [facility] N/A: Spine Lumbar Medtronic Inc [id number] / / Spinal Graft Tech [id number] Magnifuse 5x2.5cm Posterolateral Graft Bone Demineralized Bone - [id number] - [id number] Implanted:Qty: 1 on 11/07/2017 by Sudhir Rodriguez MD at [facility] N/A: Spine Lumbar Spinal Graft Tech 06/06/2019 [id number] / [id number] / Medtronic Inc [id number] 6mm 45mm Multiaxial Spine Screw Bone Cocr 5.5mm Montez - [id number] Implanted:Qty: 2 on 11/07/2017 by Sudhir Rodriguez MD at [facility] N/A: Spine Lumbar Medtronic Inc [id number] / / Medtronic Inc [id number] Solera 6.5mm 45mm Multiaxial Cannulated Spine Screw Bone Cocr 5.5 - [id number] Implanted:Qty: 2 on 11/07/2017 by Sudhir Rodriguez MD at [facility] N/A: Spine Lumbar Medtronic Inc [id number] / / Medtronic Sofamor Danek [id number] Cd Horizon Break Off Spinal Screw Set Titanium Nonsterile 5.5 Mm - [id number] Implanted:Qty: 4 on 11/07/2017 by Sudhir Rodriguez MD at [facility] N/A: Spine Lumbar Medtronic Sofamor Danek [id number] / / Medtronic Sofamor Danek [id number] 5.5mm 50mm Curve Montez Spinal Titanium Nonsterile - [id number] Implanted:Qty: 2 on 11/07/2017 by Sudhir Rodriguez MD at [facility] N/A: Spine Lumbar Medtronic Sofamor Danek [id number] / / Medtronic Inc [id number] Elevate [id number] Xlordotic Spacer Spinal Peek Titanium Sterile - [id number] Implanted:Qty: 1 on 11/07/2017 by Sudhir Rodriguez MD at [facility] N/A: Spine Lumbar Medtronic Inc [id number] / / Cook Medical Inc [id number] Coil Horton Embolization Micro Tornado .018 10mm 4mm - [id number] Implanted:Qty: 1 on 12/23/2019 at [facility] [employer] Inc [id number] 10/09/2024 [id number] / / [id number] Spinal Graft Tech [id number] Magnifuse 5x1cm Spine Cervical Posterior Graft Bone Demineralized - [id number] - [id number] Implanted:Qty: 1 on 12/25/2019 by Sudhir Rodriguez MD at [facility] Spinal Graft Tech 07/23/2021 [id number] / [id number] / Globus Medical 193.102 Rise [id number] Spacer Spinal Nonsterile - [id number] Implanted:Qty: 1 on 12/25/2019 by Sudhir Rodriguez MD at [facility] Glob[employer] Medical 193.102 / / Medtronic Sofamor Danek [id number] Cd Horizon Break Off Spinal Screw Set Titanium Nonsterile 5.5 Mm - [id number] Implanted:Qty: 8 on 12/25/2019 by Sudhir Rodriguez MD at [facility] Medtronic Inc [id number] / / Medtronic Sofamor Danek [id number] Solera Cd Horizon 6.5mm 45mm Multiaxial Spine Screw Bone Cocr - [id number] Implanted:Qty: 6 on 12/25/2019 by Sudhir Rodriguez MD at [facility] Medtronic Inc [id number] / / Medtronic Inc [id number] Cd Horizon 6mm 500mm Line Straight Montez Spinal Titanium Nonsterile - [id number] Implanted:Qty: 1 on 12/25/2019 by Sudhir Rodriguez MD at [facility] Medtronic Inc [id number] / / Spinal Graft Tech [id number] Magnifuse 10x1cm Graft Bone Demineralized Bone Matrix - [id number] - [id number] Implanted:Qty: 1 on 12/25/2019 by Sudhir Rodriguez MD at [facility] Spinal Graft Tech 11/11/2021 [id number] / [id number] / Procedures Procedure Name Priority Date/Time Associated Diagnosis Comments SCAN - OTHER ORDERS 10/16/2024 PAP WITH REFLEX TO HIGH RISK HPV Routine 08/25/2021 12:03 PM CDT Cervical cancer screening LIPID PANEL STAT 12/25/2019 1:19 PM CDT POCT HEMOGLOBIN A1C Routine 12/23/2019 1 :44 PM CDT from Last 3 Months or Most Recently Relevant to Health Maintenance Results * SCAN - OTHER ORDERS (10/16/2024) us Provider Scanning Final Result * Pap with reflex to High Risk HPV (08/25/2021 12:03 PM CDT) Thin prep (Pap test) 08/25/2021 12:03 PM CDT 08/25/2021 2:28 PM CDT Narrative PATHOLOGY [facility] - 08/29/2021 1:59 PM CDT EPIC results best viewed via link to PDF [facility] [place] [address] Note to Patients: This report may contain [...] Gender: F : 1960 (Age: 61) Address: [address] [place] [address] Hospital #: [id number] Service: Gynecology Location: Patient Type: [facility] SPECIMEN Taken: 08/25/2021 Received: 08/25/2021 Accessioned: [...] determined by the Surgical Pathology Department at [facility] as part of an ongoing software quality assurance specialist program and in compliance with federally mandated [...] determined by the Surgical Pathology Department of [facility]. It has not been cleared or approved by the U. S. Food and Drug Administration. us Rachel Fitch MD LAB CYTOLOGY ORDERABLES F inal Result PATHOLOGY [facility] 3rd Floor [place], [place] [phone] * (ABNORMAL) Lipid panel (12/25/2019 1:19 PM CDT) Cholesterol 107 30 - 199 mg/dL [facility] Comment: Interpretive Data Ages < or [...] on 2017. Triglycerides 65 <=149 mg/dL [facility] Comment: Interpretive Data Ages < or [...] revised on 2017. HDL 33(L) >=40 mg/dL [facility] Comment: Interpretive Data Ages < or [...] on 2017. LDL, calculated 61 <=129 mg/dL [facility] Comment: Interpretive Data Ages < or [...] revised on 2017. Non-HDL Cholesterol 74 mg/dL [facility] Comment: Interpretive Data Ages < or = [...] last revised on 2017. Chol/HDL ratio 3 [facility] Blood specimen (specimen) 12/25/2019 1:19 PM CDT 12/25/2019 5:14 PM CDT Sudhir Rodriguez MD LAB BLOOD ORDERABLES Final Result Performing Organization Address City/State/[facility] Co de Phone Number [facility] [place] [address] * (ABNORMAL) POCT hemoglobin A1c (12/23/2019 1:44 PM CDT) Hgb A1C, POC 6.3(H) 4.0 - 6.0 % [facility] Est Average Gluc POC 134 mg/dL [facility] Comment: The ADA recommends reporting an estimated Average Glucose (eAG) with all Hemoglobin A1c results using the equation derived from a study of 507 normal and diabetic adults. Minority populations were underrepresented and children were not included. (Diabetes Care 31:2273-8897, 2008). The eAG is not equivalent to a fasting glucose. Blood specimen (specimen) 12/23/2019 1:44 PM CDT 12/23/2019 1:44 PM CDT Sudhir Rodriguez MD POINT OF CARE TEST ORDERAB LES Final Result [facility] [place] [address] from Last 3 Months or Most Recently Relevant to Health Maintenance Insurance * Guarantor: Emilio Stock Account Type Relation to Patient Date of Phone Billing Address Personal/Family Self 1960 [phone] (Work) [address] [place] [address] MEDICARE [facility] INS CO [employer] PPO POS [facility] MEDICARE MEDICARE PHYSICIANS [employer] INS CO CCMSI Advance Directives For more information, please contact: [phone] * Full Code (Latest Code Status on File) Date Activated Date Inactivated Comments 12/25/2019 5:27 PM 12/30/2019 10:32 PM * Full Code Date Activated Date Inactivated Comments 12/23/2019 10:01 AM 12/24/2019 4:59 AM * Full Code Date Activated Date Inactivated Comments 11/07/2017 5:33 PM 11/13/2017 5:05 PM Care Teams Saw Sharpener Relationship Specialty Start Date End Date Ricky Aburto MD [address] [place] [address] PCP - General 10/09/17 Jazmine Mclean, RN Registered Nurse 03/03/19 Sudhir Rodriguez MD [address] [place] [address] Surgeon Neurosurgery 12/23/22 Annie Omer MD [address] [place] [id number] Referring Physician Physical Medicine and Rehabilitation 12/23/22
--- OUTSIDE RECORDS SUMMARY | 2024-11-27 12:01 | XMS_ITS | Patient Health Record ---
Author Organization [facility] Address [address] [place], [place] [address] Care Team Providers Care Wastewater Treatment Plant Supervisor Name Role Phone Trenton Edgar Primary Care Provider [phone] Reason For Referral No Information Social History Sex Assigned At : Social History Observation Description Sex Assigned At Female Problems Problem Type SNOMED Code ICD Code Onset Dates Problem Status W/U Status Risk Notes Problem Tinea unguium (235571396) Tinea unguium (B35.1) Active confirmed Problem Morbid obesity (disorder) (997624629) Morbid (severe) obesity due to excess calories (E66.01) Active confirmed Problem Pes planus (03643491) Flat foot [pes planus] (acquired), right foot (M21.41) Active confirmed Problem Pes planus (71353417) Flat foot [pes planus] (acquired), left foot (M21.42) Active confirmed Problem Diabetic peripheral neuropathy associated with type 2 diabetes mellitus (7251013735772) Type 2 diabetes mellitus with diabetic neuropathy, unspecified whether intermediate designer insulin use (E11.40) Active confirmed Problem Diabetic peripheral neuropathy associated with type 2 diabetes mellitus (2331289647480) Type 2 diabetes mellitus with diabetic neuropathy, without long-term current use of insulin (E11.40) Active confirmed Problem Body mass index 40+ - severely obese (916417933) Body mass index [BMI] 40.0-44.9, adult (Z68.41) Active confirmed Plan Of Treatment No Information Insurance Providers Payer Name Payer Address Payer Phone Subscriber Number Group Number Insured Name Patient Relationship to Insured Coverage Start Date Coverage End Date Medicare Part A [place] [address] [place] [address] [id number] KENDALSVETA RIVASEMILIO Self - patient is the insured 1 Physician [place] [employer] [place] [address] [place] [phone] [id number] KENDALMARIA ESTHER RIVASLY Self - patient is the insured
== END 2024-11-27 11:51 | disposition home or self-care (01) ==
LOC: CHSIMG 11:53
PROVIDERS: PCP Internal Medicine; Visit Provider Internal Medicine
DX: Z12.31 Encounter for screening mammogram for malignant neoplasm of breast (principal)
CPT/HCPCS: 77063; 77067

== ENCOUNTER 2025-01-08 17:02 | Outpatient (CLI) | payer MEDICARE, OTHER, SELFPAY ==
--- OUTSIDE RECORDS SUMMARY | 2023-11-22 09:20 | XMS_ITS ---
Author Organization [facility] Address [address] [place], [place] [id number] Care Team Providers Care Generator Operator Name Role Phone RATNA STEF Unavailable [phone] REASON FOR VISIT Diabetic shoes Encounters Encounter Location Date Provider Diagnosis [place] [address] [place], [place] [id number] 11/22/2023 STEF SEGUNDO Plan Of Treatment No Information Progress Notes * Pamela STOCKDOB:[birth year] 60 (64 yo F)Acc No.[id number]:11/22/2023 Progress Notes Patient: Pamela ROY Provider: Vee SEGUNDO :1960 A ge:63 Y S ex:Female Date:11/22/2023 Address:[address] [id number] Subjective: * Chief Complaints: * 1 . Diabetic shoes. * Medical History: Objective: * Vitals: Assessment: Plan: * Treatment: * Billing Information: * Visit Code: * Procedure Codes: * Electronic signature of CLAUDETTE SEGUNDO DPM on 01/08/2025 at 05:46 PM CDT Sign off status: Pending * Provider: Vee SEGUNDO Date: 0 11/22/2023 Generated for Georgie cameron/Kaylah/Yanely on: 0 01/08/2025 05:46 PM CDT
--- NOTE | ~2025-01-08 | XR_ITS ---
XR lumbar spine 2-3V Indication: FALL Comparison: None Findings: Moderate loss of vertebral height throughout. Grade 1 retrolisthesis L2 on L3 L3 on L4 grade 1 anterolisthesis of L4 on L5. Posterior fixation noted of L2, L1, T12, T11 and T10 with disc prostheses at L1-2 and T10-11, the hardware is intact with no acute fracture. Moderate to severe loss of the remaining disc height throughout. Soft tissues unremarkable Impression: No acute abnormality. Reviewed, dictated and finalized at location P. Impression: No acute abnormality.
--- NOTE | ~2025-01-08 | XR_ITS ---
EXAMINATION: XR hip RT min 2V, 01/08/2025 17:15 CDT HISTORY: FALL COMPARISON: No comparisons available. Findings: No acute fracture or malalignment. No significant degenerative changes. Soft tissues unremarkable. Impression: No acute fracture or malalignment. Reviewed, dictated and finalized at location P. Impression: No acute fracture or malalignment.
--- NOTE | ~2025-01-08 | XR_ITS ---
EXAMINATION: XR sacrum coccyx min 2V, 01/08/2025 17:15 CDT HISTORY: FALL COMPARISON: No comparisons available. Findings: No acute fracture or malalignment. Sclerosis of the sacroiliac joints, no erosions or bridging osteophyte formation. Soft tissues unremarkable. Impression: No acute fracture or malalignment. Reviewed, dictated and finalized at location P. Impression: No acute fracture or malalignment.
--- OUTSIDE RECORDS SUMMARY | 2025-01-08 17:46 | XMS_ITS | Patient Health Record ---
Author Organization [facility] Address [address] [facility] [address] [place], [place] [id number] Reason For Referral No Information Plan Of Treatment No Information
--- OUTSIDE RECORDS SUMMARY | 2025-01-08 17:46 | XMS_ITS | Encounter Summary ---
Author Organization [facility] Healthcare Address [address] [place] [address] Care Team Providers Care Administration Assistant Name Role Phone Ricky Aburto MD Primary Care Provider + [phone] Catie Elliott PT Unavailable Gayatri Shepard OT Unavailable [phone] Jazmine Mclean RN Unavailable Unavailab Charlene Duke DPT Unavailable Charlene Duke DPT Unavailable Sudhir Rodriguez MD Unavailable Annie Omer MD Unavailable Reason for Visit * Reason Onset Date Comments Scheduling Appointments 01/23/2019 Encounter Details Date Type Department Care Team (Late st Contact Info) Description 01/23/2019 Telephone [facility] [address] [facility] Advanced Medicine [address] [place], [place] [id number] Trenton Doyle MD [address] [facility] [address] [place], [place] [id number] Scheduling Appointments Social History Tobacco Use Types Packs/Day Years Used Date Smoking Tobacco: Former Cigarettes 1 15 1 6 - 1990 Smokeless Tobacco: Never Alcohol Use Standard Drinks/Week Comments No 0 (1 standard drink = 0.6 oz pur e alcohol) Comments No Sex and Gender Information Value Date Recorded Sex Assigned at Not on file Legal Sex Female 12:18 PM CHIEF CUSTOMER OFFICER Gender Identity Female 01/26/2020 8:54 AM CDT Sexual Orientation Straight 01/26/2020 8: 54 AM CDT 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 Author CCM Chronic Pain Care Plan Chronic Care Management No change(03/03 10:49 AM CHIEF CUSTOMER OFFICER) No Nelly Flynn, [place] Note: Problem: Chronic Pain Goals: 1. Minimize further functional decline 2. Maximize quality of life 3. Control pain Strategies: - Activity/exercise program recommendation - Conservative stepwise pain medicine strategy with multi-disciplinary approach - Recommend healthy lifestyle strategies and compensatory methods as needed documented as of this encounter Visit Diagnoses Not on filedocumented in this encounter Care Teams Administration Assistant Relationship Specialty Start Date End Date Ricky Aburto MD [address] [place] [address] PCP - General 10/09/17 Catie Elliott PT [address] [place] [address] Physical Therapist Physical Therapy 10/25/18 04/23/19 Gayatri Shepard OT [address] [place], [place] [id number] Occupational Therapist Occupational Therapy 12/06/18 07/21/19 Jazmine Mclean RN Registered Nurse 03/03/19 Charlene Duke DPT [address] [address] Physical Therapist Physical Therapy 01/23/20 11/10/20 Charlene Duke DPT [address] [place] [address] Physical Therapist Physical Therapy 08/25/20 11/10/20 Sudhir Rodriguez MD [address] [place], [place] [phone] Surgeon Neurosurgery 12/23/22 Annie Omer MD [address] [place], [place] [phone] Referring Physician Physical Medicine and Rehabilitation 12/23/22 documented as of this encounter
--- OUTSIDE RECORDS SUMMARY | 2025-01-08 17:46 | XMS_ITS | Encounter Summary ---
Author Organization [facility] Address [address] [place] [address] Phone Care Team Providers Care Cancer Center Director Name Role Phone Ricky Aburto MD Primary Care Provider [phone] Jazmine Mclean RN Unavailable Unavailab le Charlene Duke DPT Unavailable [phone] Charlene Duke DPT Unavailable [phone] Sudhir Rodriguez MD Unavailable Annie Omer MD Unavailable Encounter Details Date Type Department Care Team (Latest Contact Info) Description 09/15/2020 Orders Only [facility] Annie Omer MD [address] [facility] [address] [place] [address] Social History Tobacco Use Types Packs/Day Years Used Date Smoking Tobacco: Former Cigarettes 0.5 22.3 0 12/23/1975 - 04/16/1998 Smokeless Tobacco: Never Alcohol Use Standard Drinks/Week Comments No 0 (1 standard drink = 0.6 oz pur e alcohol) Comments No Sex and Gender Information Value Date Recorded Sex Assigned at Not on file Legal Sex Female 12:18 PM TEASEL SETTER Gender Identity Female 01/26/2020 8:54 AM CDT Sexual Orientation Straight 01/26/2020 8: 54 AM CDT 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 Author CCM Chronic Pain Care Plan Chronic Care Management No change(03/03 10:49 AM TEASEL SETTER) No Nelly Flynn RN Note: Problem: Chronic [...] on filedocumented in this encounter Care Teams Cancer Center Director Relationship Specialty Start Date End Date Ricky Aburto MD [address] [place] [address] PCP - General 10/09/17 Jazmine Mclean RN Registered Nurse 03/03/19 Charlene Duke DPT [address] [facility] [place] [address] Physical Therapist Physical Therapy 01/23/20 11/10/20 Charlene Duke DPT [address] [facility] [place] [address] Physical Therapist Physical Therapy 08/25/20 11/10/20 Sudhir Rodriguez MD [facility] [address] [place] [address] Surgeon Neurosurgery 12/23/22 Annie Omer MD [address] [place] [address] Referring Physician Physical Medicine and Rehabilitation 12/23/22 documented as of this encounter
--- OUTSIDE RECORDS SUMMARY | 2025-01-08 17:46 | XMS_ITS | Patient Health Record ---
Author Organization [facility] Address [address] [place], [place] [id number] Care Team Providers Care Plumber Pipe Fitting Name Role Phone Trenton Edgar Primary Care Provider [phone] Reason For Referral No Information Social History Sex Assigned At : Social History Observation Description Sex Assigned At Female Problems Problem Type SNOMED Code ICD Code Onset Dates Problem Status W/U Status Risk Notes Problem Tinea unguium (582502690) Tinea unguium (B35.1) Active confirmed Problem Morbid obesity (disorder) (609436645) Morbid (severe) obesity due to excess calories (E66.01) Active confirmed Problem Pes planus (41822510) Flat foot [pes planus] (acquired), right foot (M21.41) Active confirmed Problem Pes planus (58769569) Flat foot [pes planus] (acquired), left foot (M21.42) Active confirmed Problem Diabetic peripheral neuropathy associated with type 2 diabetes mellitus (2356568681779) Type 2 diabetes mellitus with diabetic neuropathy, unspecified whether group home insulin use (E11.40) Active confirmed Problem Diabetic peripheral neuropathy associated with type 2 diabetes mellitus (1361760530661) Type 2 diabetes mellitus with diabetic neuropathy, without long-term current use of insulin (E11.40) Active confirmed Problem Body mass index 40+ - severely obese (874928892) Body mass index [BMI] 40.0-44.9, adult (Z68.41) Active confirmed Plan Of Treatment No Information Insurance Providers Payer Name Payer Address Payer Phone Subscriber Number Group Number Insured Name Patient Relationship to Insured Coverage Start Date Coverage End Date Medicare Part A [place] [address] [place] [phone] [id number] KENDALSVETA RIVASEMILIO Self - patient is the insured 1 [employer] [address] [place] [phone] [id number] KENDALMARIA ESTHER RIVASLY Self - patient is the insured
--- OUTSIDE RECORDS SUMMARY | 2025-01-08 17:46 | XMS_ITS | Encounter Summary ---
Author Organization [facility] Healthcare Address [address] [place] [address] Care Team Providers Care Dosier Operator Name Role Phone Ricky Aburto MD Primary Care Provider + [phone] Catie Elliott PT Unavailable Gayatri Shepard OT Unavailable [phone] Jazmine Mclean RN Unavailable Unavailab Charlene Duke DPT Unavailable Charlene Duke DPT Unavailable Sudhir Rodriguez MD Unavailable Annie Omer MD Unavailable Reason for Visit * Reason Onset Date Comments FYI 08/27/2018 Encounter Details Date Type Department Care Team (Late st Contact Info) Description 08/27/2018 Telephone [facility] [address] [facility] Advanced Medicine [address] [place], [place] [phone] Trenton Doyle MD [address] [place], [place] [phone] FYI Social History Tobacco Use Types Packs/Day Years Used Date Smoking Tobacco: Former Cigarettes 1 15 1 6 - 1990 Smokeless Tobacco: Never Alcohol Use Standard Drinks/Week Comments No 0 (1 standard drink = 0.6 oz pur e alcohol) Comments No Sex and Gender Information Value Date Recorded Sex Assigned at Not on file Legal Sex Female 12:18 PM PAN WASHER HAND Gender Identity Female 01/26/2020 8:54 AM CDT Sexual Orientation Straight 01/26/2020 8: 54 AM CDT 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 Author CCM Chronic Pain Care Plan Chronic Care Management No change(03/03 10:49 AM PAN WASHER HAND) No Nelly Flynn, [place] Note: Problem: Chronic Pain Goals: 1. Minimize further functional decline 2. Maximize quality of life 3. Control pain Strategies: - Activity/exercise program recommendation - Conservative stepwise pain medicine strategy with multi-disciplinary approach - Recommend healthy lifestyle strategies and compensatory methods as needed documented as of this encounter Visit Diagnoses Not on filedocumented in this encounter Care Teams Dosier Operator Relationship Specialty Start Date End Date Ricky Aburto MD [address] [place] [address] PCP - General 10/09/17 Catie Elliott PT [address] [place] [address] Physical Therapist Physical Therapy 10/25/18 04/23/19 Gayatri Shepard OT [address] [place], [place] [id number] Occupational Therapist Occupational Therapy 12/06/18 07/21/19 Jazmine Mclean RN Registered Nurse 03/03/19 Charlene Duke DPT [address] [address] Physical Therapist Physical Therapy 01/23/20 11/10/20 Charlene Duke DPT [address] [place] [address] Physical Therapist Physical Therapy 08/25/20 11/10/20 Sudhir Rodriguez MD [address] [place], [place] [phone] Surgeon Neurosurgery 12/23/22 Annie Omer MD [address] [place], [place] [phone] Referring Physician Physical Medicine and Rehabilitation 12/23/22 documented as of this encounter
--- OUTSIDE RECORDS SUMMARY | 2025-01-08 17:46 | XMS_ITS | Clinical Summary ---
Author Organization [facility] Address [address] [place] [address] Care Team Providers Care Information Systems Technician Name Role Phone Ricky Aburto MD Primary Care Provider + [phone] Jazmine Mclean RN Unavailable Unavailab Sudhir Miller MD Unavailable [phone] Annie Omer MD Unavailable [phone] Allergies Active Allergy Reactions Criticality Noted Date [...] mg oralNightly, Indications: Neuropathic Pain, Reported on 12/17/2024 LORazepam (ATIVAN) 0.5 mg tabletIndicatio ns:anxiety Take 1 tablet (0.5 mg total) by mouth 2 (two) times a day 0 8 Active aspirin 81 mg enteric coated tabletIndicatio ns:prevention of thrombosis Take 1 tablet (81 mg total) by mouth charge hand before breakfast PLEASE HOLD FOR 1 WEEK [...] 06/20/2021 Assessment & Plan (06/20/2021 10:41 AM GREEN CHAIN OFFBEARER): Irregular tear film, low tbut OU and chemosis temporally OS>OD. Recommend restarting Maxitrol BID OU x2 wks. Educated to call if s/s worsen or dni. Keep 09/05/21 strab post op. Strabismus 12/29/2020 Overview (12/29/2020): Added automatically from request for surgery [id number] Exotropia 11/25/2020 Assessment & Plan (09/05/2021 10:07 [...] (12/16/2019): Added automatically from request for surgery [id number] Lumbosacral spondylosis without myelopathy 10/15 Other chronic [...] (11/07/2017): Added automatically from request for surgery [id number] Knee pain 10/04/2012 Cheilitis 03/13/2011 Dermatofibroma 03/13/2011 Skin tag 11/07/2010 Overview (07/27/2017): Description: Acrochordon Hypertension 04/05/2010 Diabetes mellitus 04/05/2010 Hyperlipidemia 04/05/2010 Thyroid nodule Encounters Date Type Department Care Team Description 12/17/2024 3:20 PM CDT Office Visit [facility] Medicine Otolaryngology Head-Neck Division [address] [facility] [address] [place] [address] Dexter Harden MD Thyroid nodule (Primary Dx) 12/17/2024 12:30 PM CDT - 12/17/2024 11:59 PM CDT Hospital Encounter [facility] [address] [place] [address] Nontoxic single thyroid nodule Discharge Disposition: Discharge to home or self care 12/11/2024 Telephone [facility] Medicine Orthopaedic Surgery [address] [facility] Advanced [facility] 12th [place] [address] [place] [address] Annie Omer MD 11/21/2024 Telephone [facility] Medicine Orthopaedic Surgery [address] [facility] Advanced Medicine 12th [place] [address] [place] [address] Annie Omer MD 11/18/[address] [facility] Otolaryngology [address] [id number] Bonny Romero, 10/16/2024 Orders Only [facility] Health Information Management [address] [facility] [place] [address] Scanning, Provider 10/16/[address] [facility] Orthopaedic Surgery [address] [facility] 12th [place] [address] [place] [address] Annie Omer MD from Last 3 Months [...] 04/02/2019,11/14/2018 Surgical History Surgery Date Site/Laterality Comments [place] OOPHORECTOMY PARTIAL/TOTAL UNI/BI Oophorectomy - (Added by [...] herniated disc Bulging lumbar disc Diabetes mellitus High cholesterol Type 2 diabetes mellitus Obesity Back pain Hip pain Hypertension Diabetes Chronic pain disorder Hip pain, right Back pain Heart disease Depression Family History Medical History Relation Name Comments Cancer Father Diabetes Father Heart disease Father Hypertension Father Pancreatic cancer Father Carcinoma Of The Pancreas - (Added by Conv) Cancer Maternal Grandfather Cancer Maternal Grandmother Lupus Mother Systemic Lupus Erythematosus - (Added by Conv) Breast cancer Mother's Sister 1 Breast Ca ncer - (Added by Conv) Ovarian cancer Mother's Sister 2 Ovarian Cancer - (Added by Conv) Diabetes Paternal Grandfather Diabetes Paternal Grandmother Cancer Sister 1 Diabetes Sister 1 Diabetes Mellit us - (Added by Conv) Hypertension Sister 2 Hypertension - (Added by Conv) Anesthesia problems Neg Hx Relation Name [...] on file Legal Sex Female 12:18 PM GREEN CHAIN OFFBEARER Gender Identity Female 01/26/2020 8:54 AM CDT Sexual Orientation Straight 01/26/2020 8: 54 AM CDT 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 Author CCM Chronic Pain Care Plan Chronic Care Management No change(03/03 10:49 AM GREEN CHAIN OFFBEARER) Nelly Lloyd, CHICO Note: Problem: Chronic Pain Goals: 1. Minimize further functional decline 2. Maximize quality of life 3. Control pain Strategies: - Activity/exercise program recommendation - Conservative stepwise pain medicine strategy with multi-disciplinary approach - Recommend healthy lifestyle strategies and compensatory methods as needed Medical Devices Implanted Type Area Composition Roll Maker And Cutter Device Identifier Shelf Expiration Date Model / Serial / Lot Medtronic Inc [id number] Elevate [id number] Xlordotic Spacer Spinal Peek Titanium Sterile - [id number] Implanted:Qty: 1 on 11/07/2017 by Sudhir Rodriguez MD at [facility] N/A: Spine Lumbar Medtronic Inc [id number] / / Spinal Graft Tech [id number] Magnifuse 5x2.5cm Posterolateral Graft Bone Demineralized Bone - [id number] - [id number] Implanted:Qty: 1 on 11/07/2017 by Sudhir Rodriguez MD at [facility] N/A: Spine Lumbar Spinal Graft Tech 06/06/2019 [id number] / [id number] / Medtronic Inc [id number] 6mm 45mm Multiaxial Spine Screw Bone Cocr 5.5mm Montez - [id number] Implanted:Qty: 2 on 11/07/2017 by Sudhir Rodriguez MD at [facility] N/A: Spine Lumbar Medtronic Inc [id number] / / Medtronic Inc [id number] Solera 6.5mm 45mm Multiaxial Cannulated Spine Screw Bone Cocr 5.5 - [id number] Implanted:Qty: 2 on 11/07/2017 by Sudhir Rodriguez MD at [facility] N/A: Spine Lumbar Medtronic Inc [id number] / / Medtronic Sofamor Danek [id number] Cd Horizon Break Off Spinal Screw Set Titanium Nonsterile 5.5 Mm - [id number] Implanted:Qty: 4 on 11/07/2017 by Sudhir Rodriguez MD at [facility] N/A: Spine Lumbar Medtronic Sofamor [place] [id number] / / Medtronic Sofamor Danek [id number] 5.5mm 50mm Curve Montez Spinal Titanium Nonsterile - [id number] Implanted:Qty: 2 on 11/07/2017 by Sudhir Rodriguez MD at [facility] N/A: Spine Lumbar Medtronic Sofamor Danek [id number] / / Medtronic Inc [id number] Elevate [id number] Xlordotic Spacer Spinal Peek Titanium Sterile - [id number] Implanted:Qty: 1 on 11/07/2017 by Sudhir Rodriguez MD at [facility] N/A: Spine Lumbar Medtronic Inc [id number] / / [employer] Inc [id number] Coil [place] Embolization Micro [place] .018 10mm 4mm - [id number] Implanted:Qty: 1 on 12/23/2019 at [facility] [employer] Inc [id number] 10/09/2024 [id number] / / [id number] Spinal Graft Tech [id number] Magnifuse 5x1cm Spine Cervical Posterior Graft Bone Demineralized - [id number] - [id number] Implanted:Qty: 1 on 12/25/2019 by Sudhir Rodriguez MD at [facility] Spinal Graft Tech 07/23/2021 [id number] / [id number] / Globus Medical 193.102 Rise [id number] Spacer Spinal Nonsterile - [id number] Implanted:Qty: 1 on 12/25/2019 by Sudhir Rodriguez MD at [facility] [employer] Medical 193.102 / / Medtronic Sofamor Danek [id number] Cd Horizon Break Off Spinal Screw Set Titanium Nonsterile 5.5 Mm - [id number] Implanted:Qty: 8 on 12/25/2019 by Sudhir Rodriguez MD at [facility] Medtronic Inc [id number] / / Medtronic Sofamor Danek [id number] Solera Cd Horizon 6.5mm 45mm Multiaxial Spine Screw Bone Cocr - [id number] Implanted:Qty: 6 on 12/25/2019 by Sudhir Rodriguez MD at [facility] Medtronic Inc [id number] / / Medtronic Inc [id number] Cd Horizon 6mm 500mm Line Straight Montez Spinal Titanium Nonsterile - [id number] Implanted:Qty: 1 on 12/25/2019 by Sudhir Rodriguez MD at [facility] Medtronic Inc [id number] / / Spinal Graft Tech [id number] Magnifuse 10x1cm Graft Bone Demineralized Bone Matrix - [id number] - [id number] Implanted:Qty: 1 on 12/25/2019 by Sudhir Rodriguez MD at [facility] Spinal Graft Tech 11/11/2021 [id number] / [id number] / Procedures Procedure Name Priority Date/Time Associated Diagnosis Comments US THYROID Schedule Routine, Read Routine (OP Routine) 12/17/2024 1:11 PM CDT Nontoxic single thyroid nodule SCAN - OTHER ORDERS 10/16/2024 PAP WITH REFLEX TO HIGH RISK HPV Routine 08/25/2021 12:03 PM CDT Cervical cancer screening LIPID PANEL STAT 12/25/2019 1:19 PM CDT POCT HEMOGLOBIN A1C Routine 12/23/2019 1:44 PM CDT from Last 3 Months or Most Recently Relevant to Health Maintenance Results * US Thyroid (12/17/2024 1:11 PM CDT) Anatomical Region Laterality Modality Head and Neck N/A Ultrasound 12/17/2024 1:28 PM CDT Impressions 12/17/2024 1:28 PM CDT No significant change in size of a dominant left mid thyroid nodule with prior cytology concerning for follicular neoplasm. ACR TI-RADS Recommendations FNA should only be recommended on a maximum of 2 nodules. A recommendation for follow-up should only be provided for a maximum of 4 nodules. TR5 (>=7 points) (risk of malignancy > 20%) >=1 cm: FNA 0.5-0.9 cm: follow-up US every year for 5 years <0.5 cm: no further evaluation TR4 (4-6 points) (risk of malignancy 5-20%) >=1.5 cm: FNA 1-1.4 cm: follow-up US in 1, 2, 3, and 5 years <1.0 cm: no further evaluation TR3 (3 points) (risk of malignancy 2-5%) >=2.5 cm: FNA 1.5-2.4 cm: follow-up US in 1, 3, and 5 years <1.5 cm: no further evaluation TR2 (2 points) and TR1 (0 points) (risk of malignancy < 2%) No FNA or follow-up US Electronically signed by: Jessica Foster M.D. Narrative 12/17/2024 1:28 PM CDT EXAMINATION: THYROID SONOGRAM HISTORY: Thyroid nodule, follow-up Prior Biopsy: Yes, biopsy of left thyroid nodule in 2018 with cytology concerning for follicular neoplasm. Patient Risk Factors: None Prior Ultrasound: 06/20/2023 FINDINGS: The thyroid is normal in size. Size right lobe: 5.8 cm craniocaudal, 1.9 cm transverse, 1.5 cm AP. Size left lobe: 5.2 cm craniocaudal, 2.9 cm transverse, 2.7 cm AP. Size isthmus: 0.6 cm AP. Estimated total number of nodules >/= 1 cm: 1 Number of spongiform nodules >/= 2 cm not described below (TR1): 0 Number of mixed cystic and solid nodules >/= 1.5 cm not described below (TR2): 0 Nodule 1: Location: Left mid. Size: 4.0 cm craniocaudal x 3.9 cm transverse x 2.5 cm AP (previously 4.0 cm craniocaudal x 4.0 cm transverse x 2.7 cm AP on 06/20/2023) Maximum Size: 4.0 cm Composition: Solid/almost completely solid (2) Echogenicity: Hypoechoic (2) Shape: Not taller than wide (0) Margins: Smooth (0) Echogenic foci: None (0) ACR TI-RADS total points: 4 ACR TI-RADS risk category: TR4 (4-6 points) Follow-up details: Prior biopsy: Yes. Biopsied in 2018 with cytology concerning for follicular neoplasm. Significant change in size (>/= 20% in two dimensions and minimal increase of 2 mm): No Change in features: No Change in ACR TI-RADS risk category: No Stable scattered small nodules on the right which do not meet TI-RADS criteria for formal description. Procedure Note Jessica Foster MD - 12/17/2024 EXAMINATION: THYROID SONOGRAM HISTORY: Thyroid nodule, follow-up Prior Biopsy: Yes, biopsy of left thyroid nodule in 2018 with cytology concerning for follicular neoplasm. Patient Risk Factors: None Prior Ultrasound: 06/20/2023 FINDINGS: The thyroid is normal in size. Size right lobe: 5.8 cm craniocaudal, 1.9 cm transverse, 1.5 cm AP. Size left lobe: 5.2 cm craniocaudal, 2.9 cm transverse, 2.7 cm AP. Size isthmus: 0.6 cm AP. Estimated total number of nodules >/= 1 cm: 1 Number of spongiform nodules >/= 2 cm not described below (TR1): 0 Number of mixed cystic and solid nodules >/= 1.5 cm not described below (TR2): 0 Nodule 1: Location: Left mid. Size: 4.0 cm craniocaudal x 3.9 cm transverse x 2.5 cm AP (previously 4.0 cm craniocaudal x 4.0 cm transverse x 2.7 cm AP on 06/20/2023) Maximum Size: 4.0 cm Composition: Solid/almost completely solid (2) Echogenicity: Hypoechoic (2) Shape: Not taller than wide (0) Margins: Smooth (0) Echogenic foci: None (0) ACR TI-RADS total points: 4 ACR TI-RADS risk category: TR4 (4-6 points) Follow-up details: Prior biopsy: Yes. Biopsied in 2018 with cytology concerning for follicular neoplasm. Significant change in size (>/= 20% in two dimensions and minimal increase of 2 mm): No Change in features: No Change in ACR TI-RADS risk category: No Stable scattered small nodules on the right which do not meet TI-RADS criteria for formal description. IMPRESSION: No significant change in size of a dominant left mid thyroid nodule with prior cytology concerning for follicular neoplasm. ACR TI-RADS Recommendations FNA should only be recommended on a maximum of 2 nodules. A recommendation for follow-up should only be provided for a maximum of 4 nodules. TR5 (>=7 points) (risk of malignancy > 20%) >=1 cm: FNA 0.5-0.9 cm: follow-up US every year for 5 years <0.5 cm: no further evaluation TR4 (4-6 points) (risk of malignancy 5-20%) >=1.5 cm: FNA 1-1.4 cm: follow-up US in 1, 2, 3, and 5 years <1.0 cm: no further evaluation TR3 (3 points) (risk of malignancy 2-5%) >=2.5 cm: FNA 1.5-2.4 cm: follow-up US in 1, 3, and 5 years <1.5 cm: no further evaluation TR2 (2 points) and TR1 (0 points) (risk of malignancy < 2%) No FNA or follow-up US Electronically signed by: Jessica Foster M.D. us Ricky Aburto MD IMG US PROCEDURES Final Resu lt * SCAN - OTHER ORDERS (10/16/2024) us Provider Scanning Final Result * Pap with reflex to High Risk HPV (08/25/2021 12:03 PM CDT) Thin prep (Pap test) 08/25/2021 12:03 PM CDT 08/25/2021 2:28 PM CDT Narrative PATHOLOGY [facility] - 08/29/2021 1:59 PM CDT EPIC results best viewed via link to PDF [facility] [place] [address] Note to Patients: This report may contain [...] Gender: F : 1960 (Age: 61) Address: [address] [place] [address] Hospital #: [id number] Service: Gynecology Location: Patient Type: [facility] SPECIMEN Taken: 08/25/2021 Received: 08/25/2021 Accessioned: [...] determined by the Surgical Pathology Department at [facility] as part of an ongoing supplier quality manager program and in compliance with federally mandated [...] determined by the Surgical Pathology Department of [facility]. It has not been cleared or approved by the U. S. Food and Drug Administration. us Rachel Fitch MD LAB CYTOLOGY ORDERABLES F inal Result PATHOLOGY [facility] 3rd Floor [place], [place] [phone] * (ABNORMAL) Lipid panel (12/25/2019 1:19 PM CDT) Cholesterol 107 30 - 199 mg/dL [facility] Comment: Interpretive Data Ages < or [...] revised on 2017. Triglycerides 65 <=149 mg/dL [facility] Comment: Interpretive Data Ages < or = [...] revised on 2017. HDL 33(L) >=40 mg/dL [facility] Comment: Interpretive Data Ages < or = [...] 2017. LDL, calculated 61 <=129 mg/dL [facility] Comment: Interpretive Data Ages < or [...] revised on 2017. Non-HDL Cholesterol 74 mg/dL [facility] Comment: Interpretive Data Ages < or = [...] last revised on 2017. Chol/HDL ratio 3 [facility] Blood specimen (specimen) 12/25/2019 1:19 PM CDT 12/25/2019 5:14 PM CDT Sudhir Rodriguez MD LAB BLOOD ORDERABLES Final Result [facility] Department [place] [address] * (ABNORMAL) POCT hemoglobin A1c (12/23/2019 1:44 PM CDT) Hgb A1C, POC 6.3(H) 4.0 - 6.0 % [facility] Est Average Gluc POC 134 mg/dL [facility] Comment: The ADA recommends reporting an estimated Average Glucose (eAG) with all Hemoglobin A1c results using the equation derived from a study of 507 normal and diabetic adults. Minority populations were underrepresented and children were not included. (Diabetes Care 31:6389-0867, 2008). The eAG is not equivalent to a fasting glucose. Blood specimen (specimen) 12/23/2019 1:44 PM CDT 12/23/2019 1:44 PM CDT [facility] Jamar Rodriguez MD POINT OF CARE TEST ORDERAB LES Final Result [facility] Department [place] [address] from Last 3 Months or Most Recently Relevant to Health Maintenance Insurance * Guarantor: Emilio [employer] Account Type Relation to Patient Date of Phone Billing Address Personal/Family Self 1960 [phone] (Work) [address] [place] [address] MEDICARE PHYSICIANS [facility] INS CO [employer] PPO POS FORMERLY [facility] MEDICARE MEDICARE PHYSICIANS [facility] INS CO [facility] Advance Directives For more information, please contact: [phone] * Full Code (Latest Code Status on File) Date Activated Date Inactivated Comments 12/25/2019 5:27 PM 12/30/2019 10:32 PM * Full Code Date Activated Date Inactivated Comments 12/23/2019 10:01 AM 12/24/2019 4:59 AM * Full Code Date Activated Date Inactivated Comments 11/07/2017 5:33 PM 11/13/2017 5:05 PM Care Teams Information Systems Technician Relationship Specialty Start Date End Date Ricky Aburto MD [address] [place] [address] PCP - General 10/09/17 Jazmine Mclean, RN Registered Nurse 03/03/19 Sudhir Rodriguez MD [address] [place], [place] [id number] Surgeon Neurosurgery 12/23/22 Annie Omer MD [address] [place] [address] Referring Physician Physical Medicine and Rehabilitation 12/23/22
== END 2025-01-08 17:03 | disposition home or self-care (01) ==
LOC: CHSIMG 17:07
PROVIDERS: PCP Internal Medicine; Visit Provider Internal Medicine
DX: M54.50 Low back pain, unspecified (principal); M25.551 Pain in right hip
CPT/HCPCS: 72100; 72220; 73502

== ENCOUNTER 2025-01-15 12:50 | Outpatient (CLI) | payer MEDICARE, OTHER, SELFPAY ==
--- OUTSIDE RECORDS SUMMARY | 2023-11-22 09:20 | XMS_ITS ---
Author Organization [facility] Address [address] [place], [place] [id number] Care Team Providers Care Representative Phlebotomy Services Name Role Phone RATNA STEF Unavailable [phone] REASON FOR VISIT Diabetic shoes Encounters Encounter Location Date Provider Diagnosis [place] [address] [place], [place] [id number] 11/22/2023 STEF SEGUNDO Plan Of Treatment No Information Progress Notes * Pamela STOCKDOB:[birth year] 60 (64 yo F)Acc No.[id number]:11/22/2023 Progress Notes Patient: Pamela ROY Provider: Vee SEGUNDO :1960 A ge:63 Y S ex:Female Date:11/22/2023 Address:[address] [id number] Subjective: * Chief Complaints: * 1 . Diabetic shoes. * Medical History: Objective: * Vitals: Assessment: Plan: * Treatment: * Billing Information: * Visit Code: * Procedure Codes: * Electronic signature of CLAUDETTE SEGUNDO DPM on 01/15/2025 at 12:57 PM CDT Sign off status: Pending * Provider: Vee SEGUNDO Date: 0 11/22/2023 Generated for Georgie cameron/Kaylah/Yanely on: 12:57 PM CDT
--- NOTE | ~2025-01-15 | CT_ITS ---
EXAMINATION: CT lumbar spine wo con COMPARISON: None HISTORY: LOW BACK PAIN TECHNIQUE: Axial images were obtained through the spine without IV contrast. Coronal, sagittal reconstruction images were obtained from the axial views. CT scan performed using dose optimization techniques including the following automated exposure control; adjustment of mA and/or kV; use of iterative reconstruction technique. Automatic exposure control was used to reduce radiation dose. Permanent radiation dose record is archived to PACS. FINDINGS: There is a mild levoconvex scoliosis. Moderate loss of vertebral height throughout. There is grade 1 anterolisthesis of L4-L5 with grade 1 retrolisthesis of L2 on L3 and L3 on L4. Posterior pedicle screws and rods fixate L2, L1, T12, T11 and T10 with disc prostheses at T10-11 and L1-2, the hardware is intact with no lucency around the screws. Severe loss of disc height at L2-3, L3-4 and L5-S1 with facet hypertrophy producing moderate to severe canal and foraminal stenosis. Soft tissues unremarkable. Impression: Postsurgical and degenerative changes Reviewed, dictated and finalized at location P. Impression: Postsurgical and degenerative changes
--- OUTSIDE RECORDS SUMMARY | 2025-01-15 12:56 | XMS_ITS | Encounter Summary ---
Author Organization [facility] Healthcare Address [address] [place] [address] Care Team Providers Care Bottoming Room Supervisor Name Role Phone Ricky Aburto MD Primary Care Provider + [phone] Catie Elliott PT Unavailable Gayatri Shepard OT Unavailable [phone] Jazmine Mclean RN Unavailable Unavailab Charlene Duke DPT Unavailable Charlene Duke DPT Unavailable Sudhir Rodriguez MD Unavailable Annie Omer MD Unavailable Reason for Visit * Reason Onset Date Comments FYI 08/27/2018 Encounter Details Date Type Department Care Team (Late st Contact Info) Description 08/27/2018 Telephone [facility] [address] [facility] [address] [place], [place] [id number] Trenton Doyle MD [address] [facility] [address] [place], [place] [id number] FYI Social History Tobacco Use Types Packs/Day Years Used Date Smoking Tobacco: Former Cigarettes 1 15 1 6 - 1990 Smokeless Tobacco: Never Alcohol Use Standard Drinks/Week Comments No 0 (1 standard drink = 0.6 oz pur e alcohol) Comments No Sex and Gender Information Value Date Recorded Sex Assigned at Not on file Legal Sex Female 12:18 PM EEG TECHNICIAN Gender Identity Female 01/26/2020 8:54 AM CDT Sexual Orientation Straight 01/26/2020 8: 54 AM CDT 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 Author CCM Chronic Pain Care Plan Chronic Care Management No change(03/03 10:49 AM EEG TECHNICIAN) No Nelly Flynn, [place] Note: Problem: Chronic Pain Goals: 1. Minimize further functional decline 2. Maximize quality of life 3. Control pain Strategies: - Activity/exercise program recommendation - Conservative stepwise pain medicine strategy with multi-disciplinary approach - Recommend healthy lifestyle strategies and compensatory methods as needed documented as of this encounter Visit Diagnoses Not on filedocumented in this encounter Care Teams Bottoming Room Supervisor Relationship Specialty Start Date End Date Ricky Aburto MD [address] [place] [address] PCP - General 10/09/17 Catie Elliott PT [address] [place] [address] Physical Therapist Physical Therapy 10/25/18 04/23/19 Gayatri Shepard OT [address] [place], [place] [id number] Occupational Therapist Occupational Therapy 12/06/18 07/21/19 Jazmine Mclean RN Registered Nurse 03/03/19 Charlene Duke DPT [address] [address] Physical Therapist Physical Therapy 01/23/20 11/10/20 Charlene Duke DPT [address] [place] [address] Physical Therapist Physical Therapy 08/25/20 11/10/20 Sudhir Rodriguez MD [address] [place], [place] [phone] Surgeon Neurosurgery 12/23/22 Annie Omer MD [address] [place], [place] [id number] Referring Physician Physical Medicine and Rehabilitation 12/23/22 documented as of this encounter
--- OUTSIDE RECORDS SUMMARY | 2025-01-15 12:57 | XMS_ITS | Patient Health Record ---
Author Organization [facility] Address [address] [place], [place] [address] Care Team Providers Care Algologist Name Role Phone Trenton Edgar Primary Care Provider Reason For Referral No Information Social History Sex Assigned At : Social History Observation Description Sex Assigned At Female Problems Problem Type SNOMED Code ICD Code Onset Dates Problem Status W/U Status Risk Notes Problem Tinea unguium (480784143) Tinea unguium (B35.1) Active confirmed Problem Morbid obesity (disorder) (075922886) Morbid (severe) obesity due to excess calories (E66.01) Active confirmed Problem Pes planus (93226054) Flat foot [pes planus] (acquired), right foot (M21.41) Active confirmed Problem Pes planus (40832777) Flat foot [pes planus] (acquired), left foot (M21.42) Active confirmed Problem Diabetic peripheral neuropathy associated with type 2 diabetes mellitus (6210829247550) Type 2 diabetes mellitus with diabetic neuropathy, unspecified whether terminal clerk insulin use (E11.40) Active confirmed Problem Diabetic peripheral neuropathy associated with type 2 diabetes mellitus (1092116268589) Type 2 diabetes mellitus with diabetic neuropathy, without long-term current use of insulin (E11.40) Active confirmed Problem Body mass index 40+ - severely obese (430164240) Body mass index [BMI] 40.0-44.9, adult (Z68.41) Active confirmed Plan Of Treatment No Information Insurance Providers Payer Name Payer Address Payer Phone Subscriber Number Group Number Insured Name Patient Relationship to Insured Coverage Start Date Coverage End Date Medicare Part A [place] [address] [place] [phone] [id number] KENDALSVETA RIVASEMILIO Self - patient is the insured 1 Physician [place] [employer] [place] [address] [place] [phone] [id number] KENDALMARIA ESTHER RIVASLY Self - patient is the insured
--- OUTSIDE RECORDS SUMMARY | 2025-01-15 12:57 | XMS_ITS | Encounter Summary ---
Author Organization [facility] Address [address] [place] [address] Phone Care Team Providers Care Stone Dresser Name Role Phone Ricky Aburto MD Primary Care Provider [phone] Jazmine Mclean RN Unavailable Unavailab le Charlene Duke DPT Unavailable [phone] Charlene Duke DPT Unavailable [phone] Sudhir Rodriguez MD Unavailable Annie Omer MD Unavailable Encounter Details Date Type Department Care Team (Latest Contact Info) Description 09/15/2020 Orders Only [facility] Annie Omer MD [address] [facility] [address] [place] [address] Social History Tobacco Use Types Packs/Day Years Used Date Smoking Tobacco: Former Cigarettes 0.5 22.3 0 12/23/1975 - 04/16/1998 Smokeless Tobacco: Never Alcohol Use Standard Drinks/Week Comments No 0 (1 standard drink = 0.6 oz pur e alcohol) Comments No Sex and Gender Information Value Date Recorded Sex Assigned at Not on file Legal Sex Female 12:18 PM STARCHER AND TENTER RANGE FEEDER Gender Identity Female 01/26/2020 8:54 AM CDT Sexual Orientation Straight 01/26/2020 8: 54 AM CDT 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 Author CCM Chronic Pain Care Plan Chronic Care Management No change(03/03 10:49 AM STARCHER AND TENTER RANGE FEEDER) No Nelly Flynn RN Note: Problem: Chronic [...] on filedocumented in this encounter Care Teams Stone Dresser Relationship Specialty Start Date End Date Ricky Aburto MD [address] [place] [address] PCP - General 10/09/17 Jazmine Mclean RN Registered Nurse 03/03/19 Charlene Duke DPT [address] [facility] [place] [address] Physical Therapist Physical Therapy 01/23/20 11/10/20 Charlene Duke DPT [address] [facility] [place] [address] Physical Therapist Physical Therapy 08/25/20 11/10/20 Sudhir Rodriguez MD [facility] [address] [place] [address] Surgeon Neurosurgery 12/23/22 Annie Omer MD [address] [place] [address] Referring Physician Physical Medicine and Rehabilitation 12/23/22 documented as of this encounter
--- OUTSIDE RECORDS SUMMARY | 2025-01-15 12:57 | XMS_ITS | Patient Health Record ---
Author Organization [facility] Address [address] [facility] [address] [place], [place] [address] Reason For Referral No Information Plan Of Treatment No Information
--- OUTSIDE RECORDS SUMMARY | 2025-01-15 12:57 | XMS_ITS | Clinical Summary ---
Author Organization [facility] Address [address] [place] [address] Care Team Providers Care Professor Of Latin American Studies Name Role Phone Ricky Aburto MD Primary Care Provider + [phone] Jazmine Mclean RN Unavailable Unavailab Sudhir Miller MD Unavailable [phone] Annie Omer MD Unavailable [phone] Allergies Active Allergy Reactions Criticality Noted Date [...] 1 tablet (81 mg total) by mouth senior control systems engineer before breakfast PLEASE HOLD FOR 1 WEEK [...] 06/20/2021 Assessment & Plan (06/20/2021 10:41 AM ACUTE CARE CLINICAL NURSE SPECIALIST): Irregular tear film, low tbut OU and chemosis temporally OS>OD. Recommend restarting Maxitrol BID OU x2 wks. Educated to call if s/s worsen or dni. Keep 09/05/21 strab post op. Strabismus 12/29/2020 Overview (12/29/2020): Added automatically from request for surgery [id number] Exotropia 11/25/2020 Assessment & Plan (09/05/2021 10:07 [...] (12/16/2019): Added automatically from request for surgery [id number] Lumbosacral spondylosis without myelopathy 10/15 Other chronic [...] (11/07/2017): Added automatically from request for surgery [id number] Knee pain 10/04/2012 Cheilitis 03/13/2011 Dermatofibroma 03/13/2011 Skin tag 11/07/2010 Overview (07/27/2017): Description: Acrochordon Hypertension 04/05/2010 Diabetes mellitus 04/05/2010 Hyperlipidemia 04/05/2010 Thyroid nodule Encounters Date Type Department Care Team Description 12/17/2024 3:20 PM CDT Office Visit [facility] Otolaryngology Head-Neck Division [address] [facility] Floor 5 [place] [address] Dexter Harden MD Thyroid nodule (Primary Dx) 12/17/2024 12:30 PM CDT - 12/17/2024 11:59 PM CDT Hospital Encounter [facility] [address] [place] [address] Nontoxic single thyroid nodule Discharge Disposition: Discharge to home or self care 12/11/2024 Telephone [facility] Orthopaedic Surgery [address] [facility] 12th [place] [address] [place] [address] Annie Omer MD 11/21/2024 Telephone [facility] Orthopaedic Surgery [address] [facility] 12th [place] [address] [place] [address] Annie Omer MD 11/18/2024 Telephone [facility] Otolaryngology [address] [place] [id number] Bonny Romero, 10/16/2024 Orders Only [facility] Health Information Management [address] [facility] [place] [address] Scanning, Provider 10/16/2024 Telephone [facility] Orthopaedic Surgery [address] [facility] 12th [place] [address] [place] [address] Annie Omer MD from Last 3 Months [...] 04/02/2019,11/14/2018 Surgical History Surgery Date Site/Laterality Comments [place] OOPHORECTOMY PARTIAL/TOTAL UNI/BI Oophorectomy - (Added by [...] on file Legal Sex Female 12:18 PM ACUTE CARE CLINICAL NURSE SPECIALIST Gender Identity Female 01/26/2020 8:54 AM CDT Sexual Orientation Straight 01/26/2020 8: 54 AM CDT 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 Minimize further functional decline 2. Maximize quality of life 3. Control pain Strategies: - Activity/exercise program recommendation - Conservative stepwise pain medicine strategy with multi-disciplinary approach - Recommend healthy lifestyle strategies and compensatory methods as needed Medical Devices Implanted Type Area Circuit Board Drafter Device Identifier Shelf Expiration Date Model / Serial / Lot Medtronic Inc [id number] Elevate [id number] Xlordotic Spacer Spinal Peek Titanium Sterile - [id number] Implanted:Qty: 1 on 11/07/2017 by Sudhir Rodriguez MD at [facility] N/A: Spine Lumbar Medtronic Inc [id number] / / Spinal Graft Tech [id number] Magnifuse 5x2.5cm Posterolateral Graft Bone Demineralized Bone - [id number] - [id number] Implanted:Qty: 1 on 11/07/2017 by Sudhir Rodriguez MD at [facility] N/A: Spine Lumbar Spinal Graft Tech 06/06/2019 [id number] / [id number] / Medtronic Inc [id number] 6mm 45mm Multiaxial Spine Screw Bone Cocr 5.5mm Montez - [id number] Implanted:Qty: 2 on 11/07/2017 by Sudhir Rodriguez MD at [facility] N/A: Spine Lumbar Medtronic Inc [id number] / / Medtronic Inc [id number] Solera 6.5mm 45mm Multiaxial Cannulated Spine Screw Bone Cocr 5.5 - [id number] Implanted:Qty: 2 on 11/07/2017 by Sudhir Rodriguez MD at [facility] N/A: Spine Lumbar Medtronic Inc [id number] / / Medtronic Sofamor Danek [id number] Cd Horizon Break Off Spinal Screw Set Titanium Nonsterile 5.5 Mm - [id number] Implanted:Qty: 4 on 11/07/2017 by Sudhir Rodriguez MD at [facility] N/A: Spine Lumbar Medtronic Sofamor Danek [id number] / / Medtronic Sofamor Danek [id number] 5.5mm 50mm Curve Montez Spinal Titanium Nonsterile - [id number] Implanted:Qty: 2 on 11/07/2017 by Sudhir Rodriguez MD at [facility] N/A: Spine Lumbar Medtronic Sofamor Danek [id number] / / Medtronic Inc [id number] Elevate 32mas9wr Xlordotic Spacer Spinal Peek Titanium Sterile - [id number] Implanted:Qty: 1 on 11/07/2017 by Sudhir Rodriguez MD at [facility] N/A: Spine Lumbar Medtronic Inc [id number] / / Cook Medical Inc [id number] Coil Iroquois Embolization Micro Tornado .018 10mm 4mm - [id number] Implanted:Qty: 1 on 12/23/2019 at [facility] [employer] Inc [id number] 10/09/2024 [id number] / / [id number] Spinal Graft Tech [id number] Magnifuse 5x1cm Spine Cervical Posterior Graft Bone Demineralized - [id number] - [id number] Implanted:Qty: 1 on 12/25/2019 by Sudhir Rodriguez MD at [facility] Spinal Graft Tech 07/23/2021 [id number] / [id number] / Globus Medical 193.102 Rise [id number] Spacer Spinal Nonsterile - [id number] Implanted:Qty: 1 on 12/25/2019 by Sudhir Rodriguez MD at [facility] Glob[employer] Medical 193.102 / / Medtronic Sofamor Danek [id number] Cd Horizon Break Off Spinal Screw Set Titanium Nonsterile 5.5 Mm - [id number] Implanted:Qty: 8 on 12/25/2019 by Sudhir Rodriguez MD at [facility] Medtronic Inc [id number] / / Medtronic Sofamor Danek [id number] Solera Cd Horizon 6.5mm 45mm Multiaxial Spine Screw Bone Cocr - [id number] Implanted:Qty: 6 on 12/25/2019 by Sudhir Rodriguez MD at [facility] Medtronic Inc [id number] / / Medtronic Inc [id number] Cd Horizon 6mm 500mm Line Straight Montez Spinal Titanium Nonsterile - [id number] Implanted:Qty: 1 on 12/25/2019 by Sudhir Rodriguez MD at [facility] Medtronic Inc [id number] / / Spinal Graft Tech [id number] Magnifuse 10x1cm Graft Bone Demineralized Bone Matrix - [id number] - [id number] Implanted:Qty: 1 on 12/25/2019 by Sudhir Rodriguez MD at [facility] Spinal Graft Tech 11/11/2021 [id number] / [id number] / Procedures Procedure Name Priority Date/Time Associated [...] CDT 08/25/2021 2:28 PM CDT Narrative PATHOLOGY [facility] - 08/29/2021 1:59 PM CDT EPIC results best viewed via link to PDF [facility] Latisha Pedersen [facility] [place] [address] Note to Patients: This report may contain [...] Gender: F : 1960 (Age: 61) Address: [address] [place] [address] Hospital #: [id number] Service: Gynecology Location: Patient Type: [facility] SPECIMEN Taken: 08/25/2021 Received: 08/25/2021 Accessioned: 08/25/2021 [...] determined by the Surgical Pathology Department at [facility] as part of an ongoing quality control chemist program and in compliance with federally mandated [...] determined by the Surgical Pathology Department of [facility]. It has not been cleared or approved by the U. S. Food and Drug Administration. us Rachel Fitch MD LAB CYTOLOGY ORDERABLES F inal Result PATHOLOGY [facility] 3rd Floor [place], [place] [phone] * (ABNORMAL) Lipid panel (12/25/2019 1:19 PM CDT) Cholesterol 107 30 - 199 mg/dL [facility] Comment: Interpretive Data Ages < or [...] revised on 2017. Triglycerides 65 <=149 mg/dL [facility] Comment: Interpretive Data Ages < or = [...] revised on 2017. HDL 33(L) >=40 mg/dL [facility] Comment: Interpretive Data Ages < or = [...] 2017. LDL, calculated 61 <=129 mg/dL [facility] Comment: Interpretive Data Ages < or [...] revised on 2017. Chol/HDL ratio 3 [facility] Blood specimen (specimen) 12/25/2019 1:19 PM CDT 12/25/2019 5:14 PM CDT Sudhir Rodriguez MD LAB BLOOD ORDERABLES Final Result [facility] Department [place] [address] * (ABNORMAL) POCT hemoglobin A1c (12/23/2019 1:44 PM CDT) Hgb A1C, POC 6.3(H) 4.0 - 6.0 % [facility] Est Average Gluc POC 134 mg/dL [facility] Comment: The ADA recommends reporting an estimated Average Glucose (eAG) with all Hemoglobin A1c results using the equation derived from a study of 507 normal and diabetic adults. Minority populations were underrepresented and children were not included. (Diabetes Care 31:2336-0331, 2008). The eAG is not equivalent to a fasting glucose. Blood specimen (specimen) 12/23/2019 1:44 PM CDT 12/23/2019 1:44 PM CDT [facility] Jamar Rodriguez MD POINT OF CARE TEST ORDERAB LES Final Result [facility] Department [place] [address] from Last 3 Months or Most Recently Relevant to Health Maintenance Insurance * Guarantor: Emilio Stock Account Type Relation to Patient Date of Phone Billing Address Personal/Family Self 1960 [phone] (Work) [address] [place] [address] [place] [address] PHYSICIANS [facility] INS [place] [employer] PPO POS [facility] MED[facility] MEDICARE PHYSICIANS [facility] INS [facility] Advance Directives For more information, please contact: [phone] * Full Code (Latest Code Status on File) Date Activated Date Inactivated Comments 12/25/2019 5:27 PM 12/30/2019 10:32 PM * Full Code Date Activated Date Inactivated Comments 12/23/2019 10:01 AM 12/24/2019 4:59 AM * Full Code Date Activated Date Inactivated Comments 11/07/2017 5:33 PM 11/13/2017 5:05 PM Care Teams Professor Of Latin American Studies Relationship Specialty Start Date End Date Ricky Aburto MD [address] [place] [address] PCP - General 10/09/17 Jazmine Mclean, RN Registered Nurse 03/03/19 Sudhir Rodriguez MD [address] [place], [place] [id number] Surgeon Neurosurgery 12/23/22 Annie Omer MD [address] [place] [address] Referring Physician Physical Medicine and Rehabilitation 12/23/22
--- OUTSIDE RECORDS SUMMARY | 2025-01-15 12:57 | XMS_ITS | Encounter Summary ---
Author Organization [facility] Address [address] [place] [address] Care Team Providers Care Internet Manager Name Role Phone Ricky Aburto MD Primary Care Provider + [phone] Catie Elliott PT Unavailable Gayatri Shepard OT Unavailable [phone] Jazmine Mclean RN Unavailable Unavailab Charlene Duke DPT Unavailable Charlene Duke DPT Unavailable Sudhir Rodriguez MD Unavailable Annie Omer MD Unavailable [phone] Reason for Visit * Reason Onset Date Comments Scheduling Appointments 01/23/2019 Encounter Details Date Type Department Care Team (Late st Contact Info) Description 01/23/2019 Telephone [facility] [address] [facility] Advanced [facility] [address] [place], [place] [phone] Trenton Doyle MD [address] [facility] [address] [place], [place] [phone] Scheduling Appointments Social History Tobacco Use Types Packs/Day Years Used Date Smoking Tobacco: Former Cigarettes 1 15 1 6 - 1990 Smokeless Tobacco: Never Alcohol Use Standard Drinks/Week Comments No 0 (1 standard drink = 0.6 oz pur e alcohol) Comments No Sex and Gender Information Value Date Recorded Sex Assigned at Not on file Legal Sex Female 12:18 PM MACHINE LEARNING INTERN Gender Identity Female 01/26/2020 8:54 AM CDT Sexual Orientation Straight 01/26/2020 8: 54 AM CDT 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 Author CCM Chronic Pain Care Plan Chronic Care Management No change(03/03 10:49 AM MACHINE LEARNING INTERN) No Nelly Flynn, [place] Note: Problem: Chronic Pain Goals: 1. Minimize further functional decline 2. Maximize quality of life 3. Control pain Strategies: - Activity/exercise program recommendation - Conservative stepwise pain medicine strategy with multi-disciplinary approach - Recommend healthy lifestyle strategies and compensatory methods as needed documented as of this encounter Visit Diagnoses Not on filedocumented in this encounter Care Teams Internet Manager Relationship Specialty Start Date End Date Ricky Aburto MD [address] [place] [address] PCP - General 10/09/17 Catie Elliott PT [address] [place] [address] Physical Therapist Physical Therapy 10/25/18 04/23/19 Gayatri Shepard OT [address] [place], [place] [id number] Occupational Therapist Occupational Therapy 12/06/18 07/21/19 Jazmine Mclean RN Registered Nurse 03/03/19 Charlene Duke DPT [address] [address] Physical Therapist Physical Therapy 01/23/20 11/10/20 Charlene Duke DPT [address] [place] [address] Physical Therapist Physical Therapy 08/25/20 11/10/20 Sudhir Rodriguez MD [address] [place], [place] [id number] Surgeon Neurosurgery 12/23/22 Annie Omer MD [address] [place], [place] [phone] Referring Physician Physical Medicine and Rehabilitation 12/23/22 documented as of this encounter
== END 2025-01-15 12:51 | disposition home or self-care (01) ==
LOC: CHSIMG 12:51
PROVIDERS: PCP Internal Medicine; Visit Provider Internal Medicine
DX: M54.50 Low back pain, unspecified (principal); Z98.890 Other specified postprocedural states
CPT/HCPCS: 72131